=== PATIENT | female | born 1955 | race Caucasian/White ===

== ENCOUNTER 2021-07-15 06:05 | Emergency (ER) | payer OTHER, MEDICAID ==
[~2021-07-15] VITALS: Ht 152.4 cm; Wt 45.4 kg
[~2021-07-15 06:05] MED LIST: ALBU18; HYDR25TA4; LEVO50TA7; ZOSTINJ
[2021-07-15 07:02] LABS: Basophils # (auto) 0 10 ^3/uL (0-0.2); Basophils % (auto) 0.3 % (0.0-2.0); Eosinophils # (auto) 0 10 ^3/uL (0-0.8); Eosinophils % (auto) 0.1 % (0.0-7.0); Hematocrit 36.1 % (36.0-46.0); Hemoglobin 12.6 g/dL (12.2-16.2); Lymphocytes % (auto) 12.3 % (10.0-50.0); Mean Corpuscular Hemoglobin 36.8 pg (28.0-32.0); Mean Corpuscular Volume 105.1 fL (80.0-100.0); Monocytes # (auto) 1.1 10 ^3/uL (0-1.3); Monocytes % (auto) 13.9 % (0.0-12.0); Neutrophils # (auto) 5.9 10 ^3/uL (1.6-8.6); Neutrophils % (auto) 73.4 % (37.0-80.0); Red Blood Cells 3.44 10^6/uL (4.0-5.20); Red Cell Distribution Width 16.4 % (11.8-14.3); White Blood Cell 8.1 10^3/uL (4.4-10.8)
[2021-07-15 07:10] LABS: INR 1.05 (0.9-1.15); Partial Thromboplastin Time 25.6 sec (23.6-33.0)
[2021-07-15 07:11] LABS: Albumin 4.1 g/dL (3.4-5.0); Calcium 9.1 mg/dL (8.5-10.1); Magnesium 2.8 mg/dL (1.6-2.6); Potassium 3.1 mmol/L (3.5-5.1)
[2021-07-15 07:18] LABS: BUN/Creatinine Ratio 23.4; Bilirubin, Total 0.7 mg/dL (0.2-1.0)
[2021-07-15] MEDS ORDERED: MORPHINE SULFATE INJECTION 2 MG/ML SYRG IV ONE ×2 (08:15→11:45)
[2021-07-15] MEDS ORDERED: ONDANSETRON HCL 4 MG/2 ML VIAL IV ONE (08:15)
[2021-07-15] MEDS ORDERED: IOHEXOL 300 MG/ML 100ML BOTTLE IJ ONE (09:02)
[2021-07-15 10:07] LABS: Urine Bacteria NONE SEEN /hpf (None Seen); Urine Blood 1+ /uL (Negative); Urine Specific Gravity 1.043 (1.001-1.035); Urine WBC 5 /hpf (0 - 5)
[2021-07-15] MEDS ORDERED: POTASSIUM EFFERVESENT TAB 25 MEQ PO ONE (11:45)
[2021-07-15] MEDS ORDERED: FLEET MINERAL OIL ENEMA 133 ML PR ONE (11:45)
[2021-07-15] MEDS ORDERED: PROCHLORPERAZINE EDISYLATE 5 MG/ML 2ML VIAL IV ONE (11:45)
[2021-07-15 13:15] VITALS: BP 121/53
== END 2021-07-15 16:51 | disposition home or self-care (01) ==
LOC: ER 06:05 → EDBD 06:05 → EDSEX 06:05 → ER 16:51
DX: N39.0 Urinary tract infection, site not specified (principal); E87.6 Hypokalemia; K56.41 Fecal impaction; C50.919 Malignant neoplasm of unspecified site of unspecified female breast; C79.51 Secondary malignant neoplasm of bone; E11.9 Type 2 diabetes mellitus without complications; E78.5 Hyperlipidemia, unspecified; I10 Essential (primary) hypertension; R11.2 Nausea with vomiting, unspecified
CPT/HCPCS: 36415; 71045; 74177; 80053; 81001; 83735; 83880; 84443; 84484; 85025; 85610; 85730; 93005; 96374; 96375; 96376; 99285; J0780; J2270; J2405; Q9967

== ENCOUNTER 2022-04-26 21:03 | Inpatient (IN) | payer OTHER, MEDICAID ==
[~2022-04-26] VITALS: Ht 152.4 cm; Wt 51.2 kg
[2022-04-26 22:35] LABS: Basophils # (auto) 0 10 ^3/uL (0-0.2); Eosinophils # (auto) 0 10 ^3/uL (0-0.8); Mean Corpuscular Volume 108.3 fL (80.0-100.0); Monocytes # (auto) 0.3 10 ^3/uL (0-1.3); White Blood Cell 7.7 10^3/uL (4.4-10.8)
[2022-04-26 22:37] LABS: Basophils % (auto) 0.5 % (0.0-2.0); Eosinophils % (auto) 0.1 % (0.0-7.0); Hematocrit 40.1 % (36.0-46.0); Lymphocytes # (auto) 0.9 10 ^3/uL (0.4-5.4); Lymphocytes % (auto) 11.4 % (10.0-50.0); Mean Corpuscular Hemoglobin 37.9 pg (28.0-32.0); Monocytes % (auto) 3.9 % (0.0-12.0); Neutrophils # (auto) 6.5 10 ^3/uL (1.6-8.6); Neutrophils % (auto) 84.1 % (37.0-80.0); Red Cell Distribution Width 14.2 % (11.8-14.3)
[2022-04-26 22:51] LABS: Albumin 4.7 g/dL (3.4-5.0); Calcium 9.4 mg/dL (8.5-10.1); Magnesium 1.9 mg/dL (1.6-2.6)
[2022-04-26 22:55] LABS: BUN/Creatinine Ratio 21.9; Bilirubin, Total 1.4 mg/dL (0.2-1.0); Total Protein 7.8 g/dL (6.4-8.2)
[2022-04-26 22:57] LABS: Potassium 2.9 mmol/L (3.5-5.1)
[2022-04-26] MEDS ORDERED: fentaNYL CITRATE 100 MCG/2 ML VL IV ONE (23:00)
[2022-04-26] MEDS ORDERED: ONDANSETRON HCL 4 MG/2 ML VIAL IV ONE (23:00)
[2022-04-26] MEDS ORDERED: SODIUM CHLORIDE 0.9% 1,000 ML IV ONE (23:00)
[2022-04-26] MEDS ORDERED: ASPirin 325 MG TAB PO ONE (23:00)
[2022-04-27 01:41] LABS: Urine Bacteria FEW /hpf (None Seen); Urine Blood 1+ /uL (Negative); Urine Specific Gravity 1.012 (1.001-1.035); Urine WBC 24 /hpf (0 - 5)
[2022-04-27] MEDS ORDERED: HYDROcodone-ACET 5/325MG TAB PO PRN (02:00)
[2022-04-27] MEDS ORDERED: ACETAMINOPHEN 325 MG TAB PO PRN (02:00)
[2022-04-27] MEDS ORDERED: DOCUSATE SOD 100 MG CAP PO PRN (02:00)
[2022-04-27] MEDS ORDERED: MORPHINE SULFATE INJ 2 MG/ml SYRG IV PRN ×2 (02:00→02:45)
[2022-04-27] MEDS ORDERED: cefTRIAXone 1GM/50ML D5W 50 ML IV ONE (02:00)
[2022-04-27] MEDS: SODIUM CHLORIDE 0.9% 1,000 ML IV SCH ×2 (02:23→23:26)
[2022-04-27] MEDS: POTASSIUM CHL 20MEQ/100ML 100 ML IV SCH ×2 (02:39→04:49)
[2022-04-27] MEDS ORDERED: NITROGLYCERIN 0.4 MG SL TAB SL PRN (02:45)
[2022-04-27] MEDS: MORPHINE SULFATE INJ 2 MG/ml SYRG IV PRN ×2 (03:16→18:40)
[2022-04-27] MEDS: ONDANSETRON HCL 4 MG/2 ML VIAL IV PRN ×3 (03:16→21:14)
[2022-04-27 06:53] LABS: Basophils # (auto) 0 10 ^3/uL (0-0.2); Eosinophils # (auto) 0 10 ^3/uL (0-0.8); Monocytes # (auto) 0.5 10 ^3/uL (0-1.3); Monocytes % (auto) 7.5 % (0.0-12.0); Red Blood Cells 3.41 10^6/uL (4.0-5.20)
[2022-04-27 06:57] LABS: Basophils % (auto) 0.4 % (0.0-2.0); Eosinophils % (auto) 0.1 % (0.0-7.0); Hemoglobin 12.9 g/dL (12.2-16.2); Lymphocytes # (auto) 0.9 10 ^3/uL (0.4-5.4); Lymphocytes % (auto) 13.2 % (10.0-50.0); Mean Corpuscular Hemoglobin 37.7 pg (28.0-32.0); Mean Corpuscular Hgb Conc. 34.8 g/dL (32.0-36.0); Mean Corpuscular Volume 108.4 fL (80.0-100.0); Neutrophils # (auto) 5.5 10 ^3/uL (1.6-8.6); Neutrophils % (auto) 78.8 % (37.0-80.0); Red Cell Distribution Width 13.6 % (11.8-14.3)
[2022-04-27 06:59] LABS: Potassium 3.4 mmol/L (3.5-5.1)
[2022-04-27 07:11] LABS: Albumin 3.9 g/dL (3.4-5.0); Calcium 8.3 mg/dL (8.5-10.1); Total Protein 6.5 g/dL (6.4-8.2)
[2022-04-27] MEDS: LEVOTHYROXINE SODIUM 50 MCG TAB PO SCH (08:13)
[2022-04-27] MEDS: ENOXAPARIN SOD 40 MG/0.4 ML SYRINGE SC SCH (09:58)
[2022-04-27] MEDS: ASPirin 81 mg TAB PO SCH (09:58)
[2022-04-27 21:30] VITALS: BP 153/98
[2022-04-27] MEDS ORDERED: ATOR20TA50 PO (22:15)
[2022-04-27] MEDS ORDERED: LETR2.5T6 PO (22:15)
[2022-04-27] MEDS: hydrALAZINE HCL 20 MG/ML VL IV PRN (23:32)
[2022-04-28] VITALS (7 sets, daily range): BP systolic 117–158; BP diastolic 64–95
[2022-04-28] MEDS ORDERED: LORazepam 2MG/ML-1ML VIAL IV PRN (00:45)
[2022-04-28] MEDS: METOCLOPRAMIDE HCL 5MG/ml INJ 2ml VIAL IV PRN (00:56)
[2022-04-28] MEDS: LEVOTHYROXINE SODIUM 50 MCG TAB PO SCH (06:12)
[2022-04-28 06:36] LABS: Basophils # (auto) 0 10 ^3/uL (0-0.2); Basophils % (auto) 0.6 % (0.0-2.0); Eosinophils # (auto) 0 10 ^3/uL (0-0.8); Eosinophils % (auto) 0.3 % (0.0-7.0); Hematocrit 36.8 % (36.0-46.0); Hemoglobin 12.8 g/dL (12.2-16.2); Lymphocytes # (auto) 1.1 10 ^3/uL (0.4-5.4); Lymphocytes % (auto) 21.8 % (10.0-50.0); Mean Corpuscular Hemoglobin 38.2 pg (28.0-32.0); Mean Corpuscular Hgb Conc. 34.9 g/dL (32.0-36.0); Mean Corpuscular Volume 109.5 fL (80.0-100.0); Monocytes # (auto) 0.5 10 ^3/uL (0-1.3); Monocytes % (auto) 10.6 % (0.0-12.0); Neutrophils # (auto) 3.4 10 ^3/uL (1.6-8.6); Neutrophils % (auto) 66.7 % (37.0-80.0); Nucleated Red Blood Cells % 0.1 %; Red Blood Cells 3.36 10^6/uL (4.0-5.20); Red Cell Distribution Width 13.8 % (11.8-14.3); White Blood Cell 5.2 10^3/uL (4.4-10.8)
[2022-04-28 06:53] LABS: Albumin 3.4 g/dL (3.4-5.0); Calcium 8.2 mg/dL (8.5-10.1)
[2022-04-28 06:56] LABS: BUN/Creatinine Ratio 25.6; Bilirubin, Total 1.1 mg/dL (0.2-1.0); Total Protein 6.1 g/dL (6.4-8.2)
[2022-04-28 07:01] LABS: Potassium 2.7 mmol/L (3.5-5.1)
[2022-04-28] MEDS ORDERED: POTASSIUM CHL 20 Meq TABLET PO ONE (07:15)
[2022-04-28] MEDS: ASPirin 81 mg TAB PO SCH (08:54)
[2022-04-28] MEDS: cefTRIAXone 1GM/50ML D5W 50 ML IV SCH (08:54)
[2022-04-28] MEDS: POTASSIUM CHL 20MEQ/100ML 100 ML IV SCH ×3 (08:55→14:55)
[2022-04-28] MEDS: ENOXAPARIN SOD 40 MG/0.4 ML SYRINGE SC SCH (08:55)
[2022-04-28] MEDS: hydrALAZINE HCL 20 MG/ML VL IV PRN (10:02)
[2022-04-28] MEDS: SODIUM CHLORIDE 0.9% 1,000 ML IV SCH (12:18)
[2022-04-28] MEDS ORDERED: DOCU100C10 PO (12:30)
[2022-04-28] MEDS: MORPHINE SULFATE INJ 2 MG/ml SYRG IV PRN (20:51)
[2022-04-29] MEDS: SODIUM CHLORIDE 0.9% 1,000 ML IV SCH (04:40)
[2022-04-29 05:00] VITALS: BP_SYST 108; BP_SYST 120; BP_DIAS 65; BP_DIAS 72
[2022-04-29] MEDS: LEVOTHYROXINE SODIUM 50 MCG TAB PO SCH (06:32)
[2022-04-29 07:01] LABS: Eosinophils # (auto) 0 10 ^3/uL (0-0.8); Eosinophils % (auto) 0.7 % (0.0-7.0); Monocytes # (auto) 0.5 10 ^3/uL (0-1.3); Neutrophils # (auto) 1.5 10 ^3/uL (1.6-8.6); Red Cell Distribution Width 13.7 % (11.8-14.3); White Blood Cell 3.1 10^3/uL (4.4-10.8)
[2022-04-29 07:05] LABS: Basophils # (auto) 0.1 10 ^3/uL (0-0.2); Basophils % (auto) 2.3 % (0.0-2.0); Hematocrit 30.3 % (36.0-46.0); Hemoglobin 10.8 g/dL (12.2-16.2); Lymphocytes % (auto) 33.9 % (10.0-50.0); Mean Corpuscular Hemoglobin 38.7 pg (28.0-32.0); Mean Corpuscular Hgb Conc. 35.6 g/dL (32.0-36.0); Mean Corpuscular Volume 108.6 fL (80.0-100.0); Monocytes % (auto) 15.3 % (0.0-12.0); Neutrophils % (auto) 47.8 % (37.0-80.0); Nucleated Red Blood Cells % 0.2 %; Red Blood Cells 2.79 10^6/uL (4.0-5.20)
[2022-04-29 07:07] LABS: Calcium 7.5 mg/dL (8.5-10.1); Potassium 3.1 mmol/L (3.5-5.1)
[2022-04-29 07:11] LABS: BUN/Creatinine Ratio 19.4
[2022-04-29] MEDS: ENOXAPARIN SOD 40 MG/0.4 ML SYRINGE SC SCH (08:49)
[2022-04-29] MEDS: cefTRIAXone 1GM/50ML D5W 50 ML IV SCH (08:49)
[2022-04-29] MEDS: ASPirin 81 mg TAB PO SCH (08:49)
[2022-04-29 09:00] VITALS: BP 152/90
[2022-04-29] MEDS: hydrALAZINE HCL 20 MG/ML VL IV PRN (10:05)
[2022-04-29] MEDS ORDERED: POTASSIUM CHL 20 Meq TABLET PO ONE (12:15)
[2022-04-29] MEDS: POTASSIUM CHL 20MEQ/100ML 100 ML IV SCH ×2 (12:21→18:14)
[2022-04-29] MEDS: METOCLOPRAMIDE HCL 5MG/ml INJ 2ml VIAL IV PRN (12:34)
[2022-04-29 13:00] VITALS: BP 142/87
[2022-04-29 17:00] VITALS: BP 134/86
== END 2022-04-29 20:30 | disposition home or self-care (01) | DRG 640 ==
LOC: EDBD 21:03 → ER 21:13 → TELE 04-27 02:40 → TELE-CENTR 04-27 21:30
PROVIDERS: ADMIT Nurse Practitioner Family; ATTEND Internal Medicine
DX: E87.6 Hypokalemia (principal); J18.9 Pneumonia, unspecified organism; C79.51 Secondary malignant neoplasm of bone; N39.0 Urinary tract infection, site not specified; C50.919 Malignant neoplasm of unspecified site of unspecified female breast; E03.9 Hypothyroidism, unspecified; I10 Essential (primary) hypertension; R77.8 Other specified abnormalities of plasma proteins; R11.2 Nausea with vomiting, unspecified; R10.13 Epigastric pain; Z85.3 Personal history of malignant neoplasm of breast; Z90.49 Acquired absence of other specified parts of digestive tract
CPT/HCPCS: 36415; 70450; 71045; 71250; 72125; 74176; 80048; 80053; 81001; 82550; 83605; 83690; 83735; 84132; 84443; 84484; 85025; 87086; 93306; 96361; 96365; 96366; 96375; 96376; G0378; J0696; J2405; J3480

== ENCOUNTER 2022-10-22 20:55 | Emergency (ER) | payer OTHER, MEDICAID ==
[~2022-10-22] VITALS: Ht 157.5 cm; Wt 56.7 kg
[~2022-10-22 20:55] MED LIST changes: +ATOR20TA50 PO; +DOCU100C10 PO; +LETR2.5T6 PO; -ZOSTINJ
[2022-10-22] MEDS ORDERED: MORPHINE SULFATE 4 MG/ML SYR/VIAL IV ONE (21:45)
[2022-10-22] MEDS ORDERED: ONDANSETRON HCL 4 MG/2 ML VIAL IV ONE (21:45)
[2022-10-22] MEDS ORDERED: SODIUM CHLORIDE 0.9% 1,000 ML IV ONE (21:45)
[2022-10-22 22:32] LABS: Basophils # (auto) 0.1 10 ^3/uL (0-0.2); Basophils % (auto) 1.1 % (0.0-2.0); Eosinophils # (auto) 0 10 ^3/uL (0-0.8); Hematocrit 36.2 % (36.0-46.0); Hemoglobin 12.4 g/dL (12.2-16.2); Lymphocytes # (auto) 0.8 10 ^3/uL (0.4-5.4); Lymphocytes % (auto) 10.8 % (10.0-50.0); Mean Corpuscular Hemoglobin 38.9 pg (28.0-32.0); Mean Corpuscular Hgb Conc. 34.4 g/dL (32.0-36.0); Monocytes # (auto) 0.6 10 ^3/uL (0-1.3); Monocytes % (auto) 8.1 % (0.0-12.0); Neutrophils # (auto) 5.5 10 ^3/uL (1.6-8.6); Nucleated Red Blood Cells % 0.1 %; Red Cell Distribution Width 14.3 % (11.8-14.3); White Blood Cell 6.9 10^3/uL (4.4-10.8)
[2022-10-22 22:49] LABS: Alanine Aminotransferase 20 U/L (13-56); Anion Gap 11 (5-15); Aspartate Aminotransferase 25 U/L (15-37); BUN/Creatinine Ratio 24.4; Blood Urea Nitrogen 22 mg/dL (7-18); Calcium 8.8 mg/dL (8.5-10.1); Carbon Dioxide 24 mmol/L (21-32); Chloride 103 mmol/L (98-107); GFR African American 80 mL/min; GFR Non-African American 66 mL/min; Glucose 159 mg/dL (74-106); Lipase 51 U/L (73-393); Potassium 3.7 mmol/L (3.5-5.1); Sodium 138 mmol/L (136-145)
[2022-10-22 22:52] LABS: Alkaline Phosphatase 88 U/L (45-117); Bilirubin, Total 0.4 mg/dL (0.2-1.0); Total Protein 7.2 g/dL (6.4-8.2)
[2022-10-22 23:50] LABS: Urine Bacteria NONE SEEN /hpf (None Seen); Urine Blood Negative /uL (Negative); Urine Specific Gravity 1.014 (1.001-1.035); Urine WBC <1 /hpf (0 - 5)
[2022-10-23] MEDS ORDERED: METOCLOPRAMIDE HCL 5MG/ml INJ 2ml VIAL IV ONE (00:15)
[2022-10-23] MEDS ORDERED: diphenhdrAMINE HCL 50 MG/1 ML VL IV ONE (00:15)
[2022-10-23] MEDS ORDERED: LACTULOSE 20Gm/30ML SOLN PO ONE (00:30)
[2022-10-23] MEDS ORDERED: MAGNESIUM CITRATE SOLUTION 300 ML BTL PO ONE (00:30)
[2022-10-23 03:30] VITALS: BP 158/91
[2022-10-23] MEDS ORDERED: ONDANSETRON HCL 4 MG/2 ML VIAL IV ONE (04:30)
== END 2022-10-23 05:10 | disposition home or self-care (01) ==
LOC: ER 20:55 → EDBD 20:55 → ER 10-23 05:10
DX: R10.13 Epigastric pain (principal); R11.2 Nausea with vomiting, unspecified; K59.00 Constipation, unspecified; E86.0 Dehydration; Z90.49 Acquired absence of other specified parts of digestive tract; Z79.899 Other long term (current) drug therapy
CPT/HCPCS: 36415; 71045; 74176; 80053; 80320; 81001; 83690; 84484; 85025; 93005; 96361; 96374; 96375; 96376; 99285; J1200; J2270; J2405; J2765; J7030

== ENCOUNTER 2023-05-02 20:50 | Inpatient (IN) | payer OTHER, MEDICAID ==
[~2023-05-02] VITALS: Ht 162.6 cm; Wt 52.0 kg
[~2023-05-02 20:50] MED LIST changes: +DOCU-265 PO; -DOCU100C10 PO
[2023-05-02] MEDS ORDERED: SODIUM CHLORIDE 0.9% 1,000 ML IV ONE (21:15)
[2023-05-02] MEDS ORDERED: ONDANSETRON HCL 4 MG/2 ML VIAL IM ONE (21:15)
[2023-05-02] MEDS ORDERED: HYDROmorphone HCL 2 MG/ML VL/or syr IM ONE (21:15)
[2023-05-02 21:47] VITALS: PULSE 110; RESP 15; O2SAT 97
[2023-05-02 21:47] LABS: Basophils # (auto) 0 10 ^3/uL (0-0.2); Basophils % (auto) 0.4 % (0.0-2.0); Eosinophils # (auto) 0 10 ^3/uL (0-0.8); Eosinophils % (auto) 0.1 % (0.0-7.0); Hematocrit 36.9 % (36.0-46.0); Hemoglobin 12.8 g/dL (12.2-16.2); Lymphocytes # (auto) 0.8 10 ^3/uL (0.4-5.4); Mean Corpuscular Hemoglobin 37.6 pg (28.0-32.0); Mean Corpuscular Hgb Conc. 34.6 g/dL (32.0-36.0); Mean Corpuscular Volume 108.8 fL (80.0-100.0); Monocytes # (auto) 0.6 10 ^3/uL (0-1.3); Monocytes % (auto) 11.8 % (0.0-12.0); Neutrophils # (auto) 3.9 10 ^3/uL (1.6-8.6); Neutrophils % (auto) 72.7 % (37.0-80.0); Nucleated Red Blood Cells % 0.2 %; Red Blood Cells 3.39 10^6/uL (4.0-5.20); Red Cell Distribution Width 14.8 % (11.8-14.3); White Blood Cell 5.4 10^3/uL (4.4-10.8)
[2023-05-02 22:05] LABS: Alanine Aminotransferase 24 U/L (7-40); Albumin 4.9 g/dL (3.2-4.8); Alkaline Phosphatase 102 U/L (46-116); Anion Gap 5 (5-15); Aspartate Aminotransferase 28 U/L (13-40); BUN/Creatinine Ratio 17.9 (10.0-20.0); Bilirubin, Total 1.4 mg/dL (0.2-1.0); Blood Urea Nitrogen 17 mg/dL (9-23); Calcium 8.7 mg/dL (8.7-10.4); Carbon Dioxide 30 mmol/L (20-30); Chloride 97 mmol/L (98-107); Glucose 128 mg/dL (74-106); Lipase 36 U/L (12-53); Magnesium 1.7 mg/dL (1.6-2.6); Sodium 132 mmol/L (136-145); Total Protein 6.8 g/dL (5.7-8.2)
[2023-05-02 22:30] LABS: CRP High Sensitivity 0.51 mg/dL (<1.0)
[2023-05-03] MEDS ORDERED: SODIUM CHLORIDE 0.9% 1,000 ML IV ONE (00:15)
[2023-05-03] MEDS ORDERED: POTASSIUM EFFERVESENT TAB 25 MEQ PO ONE (00:15)
[2023-05-03] MEDS: POTASSIUM CHL 20MEQ/100ML 100 ML IV SCH ×2 (00:48→03:02)
[2023-05-03] MEDS ORDERED: HYDROcodone-ACET 5/325MG TAB PO PRN (01:30)
[2023-05-03] MEDS ORDERED: ACETAMINOPHEN 325 MG TAB PO PRN (01:30)
[2023-05-03] MEDS ORDERED: hydrALAZINE HCL 20 MG/ML VL IV PRN (01:30)
[2023-05-03] MEDS: SODIUM CHLORIDE 0.9% 1,000 ML IV SCH ×3 (03:01→20:22)
[2023-05-03] MEDS: ONDANSETRON HCL 4 MG/2 ML VIAL IV PRN ×2 (04:10→20:14)
[2023-05-03] MEDS: MORPHINE SULFATE INJ 2 MG/ml SYRG IV PRN ×4 (04:15→19:44)
[2023-05-03] MEDS ORDERED: DOCUSATE SOD 100 MG CAP PO ONE (04:30)
[2023-05-03 06:00] LABS: Basophils # (auto) 0 10 ^3/uL (0-0.2); Eosinophils # (auto) 0 10 ^3/uL (0-0.8); Eosinophils % (auto) 0.1 % (0.0-7.0); Lymphocytes # (auto) 0.7 10 ^3/uL (0.4-5.4); Mean Corpuscular Hemoglobin 38.2 pg (28.0-32.0); Nucleated Red Blood Cells % 0.1 %; White Blood Cell 5.9 10^3/uL (4.4-10.8)
[2023-05-03 06:04] LABS: Basophils % (auto) 0.3 % (0.0-2.0); Hematocrit 33.2 % (36.0-46.0); Hemoglobin 11.7 g/dL (12.2-16.2); Lymphocytes % (auto) 11.9 % (10.0-50.0); Mean Corpuscular Hgb Conc. 35.3 g/dL (32.0-36.0); Mean Corpuscular Volume 108.2 fL (80.0-100.0); Monocytes # (auto) 0.8 10 ^3/uL (0-1.3); Monocytes % (auto) 12.8 % (0.0-12.0); Neutrophils # (auto) 4.4 10 ^3/uL (1.6-8.6); Neutrophils % (auto) 74.9 % (37.0-80.0); Red Blood Cells 3.07 10^6/uL (4.0-5.20); Red Cell Distribution Width 14.7 % (11.8-14.3)
[2023-05-03] MEDS: LEVOTHYROXINE SODIUM 50 MCG TAB PO SCH ×2 (07:07→09:59)
[2023-05-03 07:33] LABS: Alanine Aminotransferase 25 U/L (7-40); Albumin 4.1 g/dL (3.2-4.8); Alkaline Phosphatase 83 U/L (46-116); Aspartate Aminotransferase 30 U/L (13-40); BUN/Creatinine Ratio 14.7 (10.0-20.0); Blood Urea Nitrogen 11 mg/dL (9-23); Glucose 124 mg/dL (74-106)
[2023-05-03 07:34] LABS: Bilirubin, Total 1.3 mg/dL (0.2-1.0); Total Protein 6.2 g/dL (5.7-8.2)
[2023-05-03 07:40] LABS: Chloride 102 mmol/L (98-107); Potassium 3.6 mmol/L (3.5-5.1); Sodium 133 mmol/L (136-145)
[2023-05-03 07:41] LABS: Anion Gap 8 (5-15); Carbon Dioxide 23 mmol/L (20-30)
[2023-05-03 09:20] VITALS: PULSE 72; RESP 14; O2SAT 96
[2023-05-03 09:43] VITALS: RESP 18; O2SAT 97
[2023-05-03] MEDS ORDERED: RIBO200T PO (10:02)
[2023-05-03 12:36] VITALS: BP 147/76; PULSE 83; RESP 16; TEMP 98.5; O2SAT 97
[2023-05-03 17:16] VITALS: BP 158/108; PULSE 83; RESP 20; TEMP 98.4; O2SAT 98
[2023-05-03] MEDS: LOSARTAN POTASSIUM 50 MG TAB PO SCH (17:18)
[2023-05-03 20:00] VITALS: PULSE 94; RESP 18; O2SAT 96
[2023-05-03 22:00] VITALS: BP 145/70; PULSE 115; RESP 18; TEMP 98.7; O2SAT 96
[2023-05-03] MEDS: DOCUSATE SOD 100 MG CAP PO PRN (22:37)
[2023-05-04 05:00] VITALS: BP 143/95; PULSE 94; RESP 16; TEMP 98.1; O2SAT 97
[2023-05-04 06:00] LABS: Basophils # (auto) 0 10 ^3/uL (0-0.2); Eosinophils # (auto) 0 10 ^3/uL (0-0.8); Monocytes # (auto) 0.6 10 ^3/uL (0-1.3)
[2023-05-04 06:02] LABS: Basophils % (auto) 1.3 % (0.0-2.0); Eosinophils % (auto) 0.6 % (0.0-7.0); Hematocrit 34.6 % (36.0-46.0); Hemoglobin 12.3 g/dL (12.2-16.2); Lymphocytes # (auto) 0.8 10 ^3/uL (0.4-5.4); Lymphocytes % (auto) 21.3 % (10.0-50.0); Mean Corpuscular Hgb Conc. 35.6 g/dL (32.0-36.0); Mean Corpuscular Volume 106.5 fL (80.0-100.0); Monocytes % (auto) 16.9 % (0.0-12.0); Neutrophils # (auto) 2.2 10 ^3/uL (1.6-8.6); Neutrophils % (auto) 59.9 % (37.0-80.0); Red Blood Cells 3.25 10^6/uL (4.0-5.20); Red Cell Distribution Width 14.8 % (11.8-14.3); White Blood Cell 3.8 10^3/uL (4.4-10.8)
[2023-05-04 06:21] LABS: Alanine Aminotransferase 21 U/L (7-40); Alkaline Phosphatase 88 U/L (46-116); Anion Gap 7 (5-15); Aspartate Aminotransferase 15 U/L (13-40); BUN/Creatinine Ratio 16.9 (10.0-20.0); Bilirubin, Total 1.2 mg/dL (0.2-1.0); Blood Urea Nitrogen 14 mg/dL (9-23); Calcium 8.6 mg/dL (8.7-10.4); Carbon Dioxide 30 mmol/L (20-30); Chloride 95 mmol/L (98-107); Glucose 102 mg/dL (74-106); Sodium 132 mmol/L (136-145)
[2023-05-04 06:25] LABS: Potassium 2.5 mmol/L (3.5-5.1)
[2023-05-04] MEDS ORDERED: POTASSIUM CHL 20MEQ/100ML 100 ML IV ONE (06:30)
[2023-05-04] MEDS: LEVOTHYROXINE SODIUM 50 MCG TAB PO SCH (07:25)
[2023-05-04] MEDS: DOCUSATE SOD 100 MG CAP PO PRN (07:26)
[2023-05-04 08:00] VITALS: BP_SYST 152; BP_DIAS 79; BP_DIAS 93; PULSE 110; PULSE 90; PULSE 94; RESP 14; RESP 16; RESP 18; TEMP 98.6; TEMP 99.1; O2SAT 96; O2SAT 97
[2023-05-04] MEDS: LOSARTAN POTASSIUM 50 MG TAB PO SCH (09:59)
[2023-05-04] MEDS: SODIUM CHLORIDE 0.9% 1,000 ML IV SCH (10:50)
[2023-05-04 12:00] VITALS: BP_SYST 130; BP_SYST 144; BP_DIAS 68; BP_DIAS 80; PULSE 105; PULSE 98; RESP 17; RESP 18; TEMP 98.5; TEMP 99.1; O2SAT 92; O2SAT 95
[2023-05-04] MEDS ORDERED: POTASSIUM EFFERVESENT TAB 25 MEQ GT ONE (18:15)
[2023-05-04 20:00] VITALS: PULSE 81; RESP 16; O2SAT 98
[2023-05-04 22:00] VITALS: BP 128/60; PULSE 81; RESP 16; TEMP 98.8; O2SAT 98
[2023-05-04] MEDS ORDERED: MELATONIN 5 MG TAB PO ONE (23:00)
[2023-05-05] VITALS (7 sets, daily range): BP systolic 121–169; BP diastolic 76–105; PULSE 81–94; RESP 16–20; TEMP 98.2–99.2; O2SAT 96–99
[2023-05-05] MEDS: ONDANSETRON HCL 4 MG/2 ML VIAL IV PRN ×3 (00:33→21:17)
[2023-05-05] MEDS: SODIUM CHLORIDE 0.9% 1,000 ML IV SCH ×2 (03:30→20:10)
[2023-05-05 05:23] LABS: Hemoglobin 12.3 g/dL (12.2-16.2)
[2023-05-05 05:25] LABS: Hematocrit 34.7 % (36.0-46.0); Mean Corpuscular Hemoglobin 38.3 pg (28.0-32.0); Mean Corpuscular Hgb Conc. 35.5 g/dL (32.0-36.0); Mean Corpuscular Volume 107.7 fL (80.0-100.0); Red Blood Cells 3.22 10^6/uL (4.0-5.20); Red Cell Distribution Width 14.9 % (11.8-14.3); White Blood Cell 4.2 10^3/uL (4.4-10.8)
[2023-05-05 05:26] LABS: Basophils % (manual) 0 (0.0-2.0); Blast Cells 0; Eosinophils % (manual) 0 (0-7); Metamyelocytes % 0; Myelocytes % 0; Promyelocytes % 0; Reactive Lymphocytes 0
[2023-05-05 05:39] LABS: Alanine Aminotransferase 19 U/L (7-40); Alkaline Phosphatase 87 U/L (46-116); Anion Gap 7 (5-15); Aspartate Aminotransferase 12 U/L (13-40); BUN/Creatinine Ratio 15.5 (10.0-20.0); Bilirubin, Total 1.2 mg/dL (0.2-1.0); Blood Urea Nitrogen 13 mg/dL (9-23); Calcium 8.7 mg/dL (8.7-10.4); Carbon Dioxide 29 mmol/L (20-30); Chloride 97 mmol/L (98-107); Glucose 105 mg/dL (74-106); Magnesium 1.9 mg/dL (1.6-2.6); Sodium 133 mmol/L (136-145); Total Protein 6.2 g/dL (5.7-8.2)
[2023-05-05 06:04] LABS: Band Neutrophils % (manual) 1; Lymphocytes % (manual) 29 (10.0-50.0); Monocytes % (manual) 12 (0-12); Platelet Estimate Adequate
[2023-05-05 06:12] LABS: Potassium 2.6 mmol/L (3.5-5.1)
[2023-05-05] MEDS: LEVOTHYROXINE SODIUM 50 MCG TAB PO SCH (06:34)
[2023-05-05] MEDS ORDERED: POTASSIUM CHL 20MEQ/100ML 100 ML IV ONE (07:15)
[2023-05-05] MEDS ORDERED: POTASSIUM CHL 20 Meq TABLET PO ONE (07:15)
[2023-05-05] MEDS: LOSARTAN POTASSIUM 50 MG TAB PO SCH (08:59)
[2023-05-05] MEDS: GABAPENTIN 300 MG CAP PO SCH ×2 (13:49→21:16)
[2023-05-06] MEDS: TEMAZEPAM 15 MG CAP PO PRN ×2 (01:24→23:06)
[2023-05-06] MEDS: MORPHINE SULFATE INJ 2 MG/ml SYRG IV PRN (01:32)
[2023-05-06 05:00] VITALS: BP 115/80; PULSE 86; RESP 18; TEMP 97.9; O2SAT 92
[2023-05-06 06:16] LABS: Basophils # (auto) 0.1 10 ^3/uL (0-0.2); Eosinophils # (auto) 0.1 10 ^3/uL (0-0.8); Hemoglobin 10.7 g/dL (12.2-16.2); Lymphocytes # (auto) 1.6 10 ^3/uL (0.4-5.4); Monocytes # (auto) 0.6 10 ^3/uL (0-1.3); Monocytes % (auto) 15.6 % (0.0-12.0); Neutrophils # (auto) 1.6 10 ^3/uL (1.6-8.6); Nucleated Red Blood Cells % 0.2 %; Red Blood Cells 2.78 10^6/uL (4.0-5.20); White Blood Cell 3.9 10^3/uL (4.4-10.8)
[2023-05-06 06:19] LABS: Basophils % (auto) 3.1 % (0.0-2.0); Eosinophils % (auto) 1.7 % (0.0-7.0); Hematocrit 29.5 % (36.0-46.0); Lymphocytes % (auto) 39.9 % (10.0-50.0); Mean Corpuscular Hemoglobin 38.7 pg (28.0-32.0); Mean Corpuscular Volume 106.1 fL (80.0-100.0); Neutrophils % (auto) 39.7 % (37.0-80.0); Red Cell Distribution Width 14.7 % (11.8-14.3)
[2023-05-06] MEDS: LEVOTHYROXINE SODIUM 50 MCG TAB PO SCH (06:27)
[2023-05-06] MEDS: GABAPENTIN 300 MG CAP PO SCH ×3 (06:27→23:07)
[2023-05-06 06:28] LABS: Anion Gap 6 (5-15); Carbon Dioxide 28 mmol/L (20-30); Chloride 104 mmol/L (98-107); Sodium 138 mmol/L (136-145)
[2023-05-06 06:34] LABS: BUN/Creatinine Ratio 13.1 (10.0-20.0); Blood Urea Nitrogen 11 mg/dL (9-23); Glucose 94 mg/dL (74-106); Magnesium 1.7 mg/dL (1.6-2.6)
[2023-05-06 07:07] LABS: Mean Corpuscular Hgb Conc. 36.5 g/dL (32.0-36.0)
[2023-05-06] MEDS ORDERED: POTASSIUM CHL 20 Meq TABLET PO ONE (07:15)
[2023-05-06] MEDS ORDERED: LIDOCAINE VISCOUS 2% 15ML UD ONE (08:50)
[2023-05-06] MEDS ORDERED: MIDAZOLAM HCL 5 MG/ML-1ML VIAL ONE (08:50)
[2023-05-06] MEDS ORDERED: diphenhdrAMINE HCL 50 MG/1 ML VL ONE (08:51)
[2023-05-06] MEDS ORDERED: fentaNYL CITRATE 100 MCG/2 ML VL ONE (08:51)
[2023-05-06] MEDS ORDERED: SODIUM CHLORIDE LOCK 10 ML ONE (08:51)
[2023-05-06 09:00] VITALS: BP 161/83; PULSE 73; RESP 17; TEMP 98; O2SAT 96
[2023-05-06] MEDS: LOSARTAN POTASSIUM 50 MG TAB PO SCH (10:00)
[2023-05-06] MEDS ORDERED: PANTOPRAZOLE 40 MG/10 ML VIAL INJ IV SCH ×2 (10:00→22:00)
[2023-05-06] MEDS ORDERED: ONDANSETRON HCL 4 MG/2 ML VIAL IV PRN (11:45)
[2023-05-06] MEDS ORDERED: MIDAZOLAM HCL 2MG/2ML 2ml VIAL (1mg/ml) ONE (11:46)
[2023-05-06] MEDS ORDERED: PROPOFOL 10 MG/ML 20 ML IV ONE (12:04)
[2023-05-06] MEDS ORDERED: LIDOCAINE 2% (LOCAL ANESTH.) PF 5ml SDV ONE (12:04)
[2023-05-06 12:12] VITALS: O2SAT 99
[2023-05-06] MEDS: SODIUM CHLORIDE 0.9% 1,000 ML IV SCH (13:04)
[2023-05-06] MEDS ORDERED: LORazepam 2MG/ML-1ML VIAL IV ONE (13:15)
[2023-05-06 14:25] LABS: Urine Bacteria NONE SEEN /hpf (None Seen); Urine Blood Negative /uL (Negative); Urine Clarity Clear (Clear); Urine Color Colorless (Yellow); Urine Mucus FEW (None Seen); Urine Protein, UAD Negative (Negative); Urine Specific Gravity 1.007 (1.001-1.035); Urine Urobilinogen Normal (Negative); Urine WBC <1 /hpf (0 - 5)
[2023-05-06 17:00] VITALS: BP 139/80; PULSE 82; RESP 17; TEMP 98.3; O2SAT 96
[2023-05-06] MEDS: SUCRALFATE 1 GM/10 ML ORAL SUSP PO SCH (17:00)
[2023-05-06] MEDS: NYSTATIN (MOUTH-THROAT) 500,000 UNITS/5 ML SUSP MT SCH ×2 (18:00→23:06)
[2023-05-06 20:00] VITALS: BP 143/86; PULSE 101; RESP 18; TEMP 98.4; O2SAT 97
[2023-05-06 22:00] VITALS: BP 143/86; PULSE 101; RESP 18; TEMP 98.4; O2SAT 97
[2023-05-06] MEDS: PANTOPRAZOLE 40 MG TAB PO SCH (23:07)
[2023-05-07 05:00] VITALS: BP 90/44; PULSE 74; RESP 18; TEMP 98; O2SAT 97
[2023-05-07 06:33] LABS: Basophils # (auto) 0.1 10 ^3/uL (0-0.2); Eosinophils # (auto) 0.1 10 ^3/uL (0-0.8); Hemoglobin 10.4 g/dL (12.2-16.2); Neutrophils # (auto) 2.1 10 ^3/uL (1.6-8.6); Nucleated Red Blood Cells % 0.1 %; White Blood Cell 5.1 10^3/uL (4.4-10.8)
[2023-05-07 06:37] LABS: Basophils % (auto) 2.6 % (0.0-2.0); Eosinophils % (auto) 2.3 % (0.0-7.0); Hematocrit 28.8 % (36.0-46.0); Mean Corpuscular Hemoglobin 38.5 pg (28.0-32.0); Mean Corpuscular Volume 107.1 fL (80.0-100.0); Monocytes # (auto) 0.8 10 ^3/uL (0-1.3); Monocytes % (auto) 14.8 % (0.0-12.0); Neutrophils % (auto) 41.3 % (37.0-80.0); Red Blood Cells 2.69 10^6/uL (4.0-5.20); Red Cell Distribution Width 14.9 % (11.8-14.3)
[2023-05-07 06:41] LABS: Chloride 108 mmol/L (98-107); Potassium 3.5 mmol/L (3.5-5.1); Sodium 142 mmol/L (136-145)
[2023-05-07 06:42] LABS: Anion Gap 6 (5-15); Calcium 8.3 mg/dL (8.5-10.1); Carbon Dioxide 28 mmol/L (20-30)
[2023-05-07 06:47] LABS: BUN/Creatinine Ratio 10.7 (10.0-20.0); Blood Urea Nitrogen 9 mg/dL (9-23); Glucose 95 mg/dL (74-106)
[2023-05-07] MEDS: SODIUM CHLORIDE 0.9% 1,000 ML IV SCH (06:50)
[2023-05-07] MEDS: GABAPENTIN 300 MG CAP PO SCH ×2 (06:50→14:14)
[2023-05-07] MEDS: SUCRALFATE 1 GM/10 ML ORAL SUSP PO SCH (06:51)
[2023-05-07] MEDS: NYSTATIN (MOUTH-THROAT) 500,000 UNITS/5 ML SUSP MT SCH ×2 (06:51→14:15)
[2023-05-07] MEDS: LEVOTHYROXINE SODIUM 50 MCG TAB PO SCH (06:51)
[2023-05-07 09:00] VITALS: BP 132/80; PULSE 73; RESP 17; TEMP 98.4; O2SAT 94
[2023-05-07] MEDS: PANTOPRAZOLE 40 MG TAB PO SCH (10:33)
[2023-05-07] MEDS: LOSARTAN POTASSIUM 50 MG TAB PO SCH (10:34)
[2023-05-07] MEDS ORDERED: PANT40TA2 PO (12:24)
[2023-05-07] MEDS ORDERED: NYS5LQ MT (12:24)
[2023-05-07] MEDS ORDERED: SUCR1SUS26 PO (12:24)
[2023-05-07 12:57] VITALS: BP 132/80; TEMP 36.7
[2023-05-07 12:59] VITALS: BP 122/70; PULSE 96; RESP 19; TEMP 98.4; O2SAT 98
== END 2023-05-07 16:20 | disposition home or self-care (01) | DRG 391 ==
LOC: EDBD 20:50 → ER 20:50 → OVERFLOW 05-03 02:51 → WEST WING 05-03 09:30
PROVIDERS: ADMIT Internal Medicine
PROC: 0DB68ZX Excision of Stomach, Via Natural or Artificial Opening Endoscopic, Diagnostic (ICD-10-PCS; 2023-05-06)
PROC: 0DB58ZX Excision of Esophagus, Via Natural or Artificial Opening Endoscopic, Diagnostic (ICD-10-PCS; 2023-05-06)
PROC: 0DB98ZX Excision of Duodenum, Via Natural or Artificial Opening Endoscopic, Diagnostic (ICD-10-PCS; principal; 2023-05-06 11:41)
DX: K29.90 Gastroduodenitis, unspecified, without bleeding (principal); N17.0 Acute kidney failure with tubular necrosis; E87.1 Hypo-osmolality and hyponatremia; K22.10 Ulcer of esophagus without bleeding; K44.9 Diaphragmatic hernia without obstruction or gangrene; E86.0 Dehydration; C50.919 Malignant neoplasm of unspecified site of unspecified female breast; E03.9 Hypothyroidism, unspecified; I10 Essential (primary) hypertension; K59.00 Constipation, unspecified; E87.6 Hypokalemia; F41.9 Anxiety disorder, unspecified; G47.00 Insomnia, unspecified; K25.9 Gastric ulcer, unspecified as acute or chronic, without hemorrhage or perforation; K29.70 Gastritis, unspecified, without bleeding; Z90.49 Acquired absence of other specified parts of digestive tract; Z80.3 Family history of malignant neoplasm of breast; Z82.0 Family history of epilepsy and other diseases of the nervous system
CPT/HCPCS: 36415; 74176; 74181; 80048; 80053; 81001; 82607; 82746; 83605; 83690; 83735; 84443; 84484; 85007; 85025; 85027; 86141; 93005; 96360; 96372; C9113; G0378; J2001; J2250; J2405; J2704; J3480

== ENCOUNTER 2023-09-08 10:03 | Emergency (ER) | payer OTHER, MEDICAID ==
[~2023-09-08] VITALS: Ht 152.4 cm; Wt 47.7 kg
[~2023-09-08 10:03] MED LIST changes: -ATOR20TA50 PO; +NYS5LQ MT; +PANT40TA2 PO; +RIBO200T PO; +SUCR1SUS26 PO
[2023-09-08] MEDS ORDERED: SODIUM CHLORIDE 0.9% 1,000 ML IV ONE (10:15)
[2023-09-08] MEDS ORDERED: SODIUM CHLORIDE 0.9% 500 ML IVB ONE (10:15)
[2023-09-08] MEDS ORDERED: KETOROLAC TROMETH 30 MG/ML 1ML VIAL IV ONE (10:15)
[2023-09-08] MEDS ORDERED: PROCHLORPERAZINE EDISYLATE 5 MG/ML 2ML VIAL IV ONE (10:15)
[2023-09-08 10:34] LABS: Basophils # (auto) 0 10 ^3/uL (0-0.2); Basophils % (auto) 0.6 % (0.0-2.0); Eosinophils # (auto) 0 10 ^3/uL (0-0.8); Eosinophils % (auto) 0.1 % (0.0-7.0); Neutrophils # (auto) 4.8 10 ^3/uL (1.6-8.6); Nucleated Red Blood Cells % 0.1 %; White Blood Cell 6.3 10^3/uL (4.4-10.8)
[2023-09-08 10:36] LABS: Hematocrit 42.5 % (36.0-46.0); Hemoglobin 14.6 g/dL (12.2-16.2); Lymphocytes % (auto) 15.2 % (10.0-50.0); Mean Corpuscular Hemoglobin 34.2 pg (28.0-32.0); Mean Corpuscular Hgb Conc. 34.4 g/dL (32.0-36.0); Mean Corpuscular Volume 99.4 fL (80.0-100.0); Monocytes # (auto) 0.6 10 ^3/uL (0-1.3); Monocytes % (auto) 8.9 % (0.0-12.0); Neutrophils % (auto) 75.2 % (37.0-80.0); Red Blood Cells 4.28 10^6/uL (4.0-5.20); Red Cell Distribution Width 14.3 % (11.8-14.3)
[2023-09-08 11:07] LABS: Alanine Aminotransferase 21 U/L (7-40); Albumin 4.9 g/dL (3.2-4.8); Alkaline Phosphatase 119 U/L (46-116); Anion Gap 5 (5-15); Aspartate Aminotransferase 19 U/L (13-40); Bilirubin, Total 1.2 mg/dL (0.2-1.0); Blood Urea Nitrogen 13 mg/dL (9-23); Calcium 9.4 mg/dL (8.5-10.1); Carbon Dioxide 30 mmol/L (20-30); Chloride 96 mmol/L (98-107); Glucose 143 mg/dL (74-106); Potassium 3.3 mmol/L (3.5-5.1); Sodium 131 mmol/L (136-145); Total Protein 7.3 g/dL (5.7-8.2)
[2023-09-08 11:52] LABS: Lipase 25 U/L (12-53); Magnesium 2.1 mg/dL (1.6-2.6)
[2023-09-08] MEDS ORDERED: POTASSIUM EFFERVESENT TAB 25 MEQ PO ONE (12:15)
[2023-09-08] MEDS ORDERED: PROC10TA6 PO (12:35)
[2023-09-08] MEDS ORDERED: TRAM50TA2 PO (12:35)
[2023-09-08 15:27] VITALS: BP 154/93; PULSE 95; RESP 16; TEMP 98.8; O2SAT 95
== END 2023-09-08 15:33 | disposition home or self-care (01) ==
LOC: ER 10:03 → EDBD 10:03 → ER 15:33
DX: C50.912 Malignant neoplasm of unspecified site of left female breast (principal); C79.51 Secondary malignant neoplasm of bone; E87.6 Hypokalemia; M25.551 Pain in right hip; I10 Essential (primary) hypertension; K21.9 Gastro-esophageal reflux disease without esophagitis; J44.9 Chronic obstructive pulmonary disease, unspecified; F15.90 Other stimulant use, unspecified, uncomplicated; Z98.890 Other specified postprocedural states; Z79.899 Other long term (current) drug therapy; W18.39XA Other fall on same level, initial encounter; Y93.89 Activity, other specified; Y92.098 Other place in other non-institutional residence as the place of occurrence of the external cause; Y99.8 Other external cause status
CPT/HCPCS: 36415; 71045; 73502; 80053; 83690; 83735; 84443; 85025; 93005; 96361; 96374; 96375; 99285; J0780; J1885; J7030

== ENCOUNTER 2024-06-29 00:36 | Inpatient (IN) | payer OTHER, MEDICAID ==
[~2024-06-29] VITALS: Ht 152.4 cm; Wt 47.9 kg
[~2024-06-29 00:36] MED LIST changes: +PROC10TA6 PO; +TRAM50TA2 PO
--- NOTE | 2024-06-29 01:04 | ED.PDOC ---
History of Present Illness HPI Comments 69 y/o F, with a Hx of breast CA, COPD, GERD, HTN, and hypothyroidism, is BIBA for c/o ALOC w/abnormal behavior, abdominal pain, nausea, vomiting, diarrhea, and fever, today. Per EMS report, patient's family called after patient began acting "not appropriate" towards her usual self in addition to developing remaining symptoms, yesterday, evening. Patient was found on scene with a blood glucose of 199, with all remaining vitals within normal limits, in addition to being slow to respond to questions but still follows commands. Upon arrival to ED, patient had a temperature of 99.5F. Patient has no reported known recent sick contact, travel, injuries, substance use/exposure, or spoiled food intake. Patient has no reported hematemesis, constipations, urinary symptoms, weakness, chills, or other associated symptoms or modifiers at this time. Time Seen by : 00:45 Primary Care Provider: MARSHALL Reviewed Notes: Nurses Notes, Commissary Manager Notes, Medications, Allergies Allergies: Coded Allergies: NO KNOWN ALLERGIES (Unverified , 09/08/23) Home Meds Active Scripts Tramadol Hcl (Tramadol Hcl) 50 Mg Tab, 50 MG PO BID for 5 Days, #10 TAB Prov:MELANIE BECERRIL MD 09/08/23 Prochlorperazine Maleate (Compazine) 10 Mg Tb, 1 TAB PO Q6HR for 10 Days, #40 TAB 3 Refills Prov:MELANIE BECERRIL MD 09/08/23 Nystatin (Mouth-Throat) (Mycostatin (Mouth-Throat)) 500,000 Units/5 Ml Ss, 5 ML MT QID for 5 Days, #100 ML Prov:LETI DE LEÓN MD 05/07/23 Sucralfate (CARAFATE SUSP) 1 Gm/10 Ml Ss, 1 GM PO BIDAC for 30 Days, #120 ML Prov:LETI DE LEÓN MD 05/07/23 Pantoprazole Sodium Sesquihydr (Protonix) 40 Mg Tab, 40 MG PO BID for 30 Days, #60 TAB Prov:LETI DE LEÓN MD 05/07/23 Docusate Sodium (Docusate Sodium) 100 Mg Cap, 100 MG PO BIDPRN PRN, #30 CAP Prov:DOUGLAS ALLENP 04/28/22 Reported Medications Ribociclib Succinate (Kisqali) 200 Mg Tab, 200 MG PO DAILY, TAB 05/03/23 Letrozole (LETROZOLE) 2.5 Mg Tab, 1 TAB PO DAILY 04/27/22 Levothyroxine Sodium (Levothyroxine Sodium) 50 Mcg Tab, #90 09/06/14 Hydrochlorothiazide (Hydrochlorothiazide) 25 Mg Tab, #30 09/06/14 Albuterol Sulfate (Ventolin Hfa) Aer, #18 09/06/14 Information Source: Patient, Emergency Med Personnel Mode of Arrival: EMS Severity: Moderate Timing: Hours Duration: Since onset Prehospital treatment: 12 Lead EKG, Accucheck (199), Case Manager Past Medical History PAST MEDICAL HISTORY: Cancer (breast), COPD, GERD, HTN, Thyroid (hypothyroidism ) Past Medical History (Other): NANDA Surgical History: Appendectomy, Hernia Repair Surgical History (Other): endometrial ablation and left breast lumpectomy PLATE MAKER History: Denies all PLATE MAKER Hx Family History Family History: Reviewed,noncontributory to illness, No family hx of Cancer, No family hx of DM, No family hx of Heart jd, No family hx of HTN, No family hx ofKidney jd, No family hx of Liver jd, No family hx of Lung jd, No family hx of Stroke Social History Smoker: Non-Smoker Alcohol: Denies ETOH Use Drugs: Marijuana Lives In: Home Constitutional: reports: fever; denies: chills, diaphoresis, fatigue, malaise, sweats, weakness, others EENTM: denies: blurred vision, double vision, ear bleeding, ear discharge, ear drainage, ear pain, ear ringing, eye pain, eye redness, hearing loss, mouth pain, mouth swelling, nasal discharge, nose bleeding, nose congestion, nose pain, photophobia, tearing, throat pain, throat swelling, voice changes, others Respiratory: denies: cough, hemoptysis, orthopnea, SOB at rest, shortness of b reath, SOB with excertion, stridor, wheezing, others Cardiovascular: denies: chest pain, dizzy spells, diaphoresis, Dyspnea on exertion, edema, irregular heart beat, left arm pain, lightheadedness, palpitations, PND, syncope, others Gastrointestinal: reports: abdominal pain, diarrhea, nausea, vomiting; denies: abdomen distended, blood streaked bowels, constipated, dysphagia, difficulty swallowing, hematemesis, melena, poor appetite, poor fluid intake, rectal bleeding, rectal pain, others Genitourinary: denies: abnormal vagina bleeding, burning, dyspareunia, dysuria, flank pain, frequency, hematuria, incontinence, pain, , vagina discharge, urgency, others Neurological: reports: others (ALOC w/abnormal behavior ); denies: dizziness, fainting, headache, left sided numbness, left sided weakness, numbness, paresthesia, pre-existing deficit, right sided numbness, right sided weakness, seizure, speech problems, tingling, tremors, weakness Musculoskeletal: denies: back pain, gout, joint pain, joint swelling, muscle pain, muscle stiffness, neck pain, others Integumetry: denies: bruises, change in color, change in hair/nails, dryness, laceration, lesions, lumps, rash, wounds, others Allergic/Immunocompromised: denies: Difficulty Healing, Frequent Infections, Hives, Itching, others Hematologic/Lymphatic: denies: anemia, blood clots, easy bleeding, easy bruising, swollen glands, others Endocrine: denies: excessive hunger, excessive sweating, excessive thirst, excessive urination, flushing, intolerance to cold, intolerance to heat, unexplained weight gain, unexplained weight loss, others Psychiatric: denies: anxiety, bipolar disorder, depression, hopeless, panic disorder, schizophrenia, sleepless, suicidal, others All Other Systems: Reviewed and Negative Physical Exam General Appearance: Moderate Distress, Thin HEENT: Normal ENT Inspection, Pharynx Normal, TMs Normal Neck: Full Range of Motion, Non-Tender, Normal, Normal Inspection Respiratory: Chest Non-Tender, Lungs Clear, No Accessory Muscle Use, No Respiratory Distress, Normal Breath Sounds Cardiovascular: No Edema, No JVD, No Murmur, No Gallop, Normal Peripheral Pulses, Regular Rate/Rhythm Breast Exam: Deferred Gastrointestinal: No Organomegaly, Non Tender, No Pulsatile Mass, Normal Bowel Sounds, Soft Genitalia: Deferred Pelvic: Deferred Rectal: Deferred Extremities: No pedal edema Musculoskeletal : Apperance: Normal Neurologic: Alert Cerebellar Function: NOT DONE Reflexes: NOT DONE Skin: Pallor Peripheral Pulses: 3+ Radial (R), 3+ Radial (L) Lymphatic: No Adenopathy Was a procedure done? Was a procedure done?: No EKG EKG : Pulse Rate (adult): 83 [place]: Normal Cardiac Rhythm: NSR Block: None Hypertrophy: None ST: Normal Differential Dx Considerations may include: viral syndrome, gastritis, gastroenteritis, spoiled food, UTI, electrolyte imbalance, dehydration X-Ray, Labs, Meds, VS Vital Signs Date Time Temp Pulse Resp B/P (MAP) Pulse Ox O2 Delivery O2 Flow Rate FiO2 06/29/24 01:04 83 06/29/24 00:54 83 Lab Test 06/29/24 01:09 Range/Units White Blood Count 8.3 4.4-10.8 10^3/uL Red Blood Count 3.33 L 4.0-5.20 10^6/uL Hemoglobin 12.5 12.2-16.2 g/dL Hematocrit 35.1 L 36.0-46.0 % Mean Corpuscular Volume 105.4 H 80.0-100.0 fL Mean Corpuscular Hemoglobin 37.6 H 28.0-32.0 pg Mean Corpuscular Hemoglobin Concent 35.7 32.0-36.0 g/dL Red Cell Distribution Width 14.0 11.8-14.3 % Platelet Count 489 H 140-450 10^3/uL Mean Platelet Volume 7.2 6.9-10.8 fL Neutrophils (%) (Auto) 76.7 37.0-80.0 % Lymphocytes (%) (Auto) 15.7 10.0-50.0 % Monocytes (%) (Auto) 5.1 0.0-12.0 % Eosinophils (%) (Auto) 0.3 0.0-7.0 % Basophils (%) (Auto) 2.2 H 0.0-2.0 % Neutrophils # (Auto) 6.4 1.6-8.6 10 ^3/uL Lymphocytes # (Auto) 1.3 0.4-5.4 10 ^3/uL Monocytes # (Auto) 0.4 0-1.3 10 ^3/uL Eosinophils # (Auto) 0 0-0.8 10 ^3/uL Basophils # (Auto) 0.2 0-0.2 10 ^3/uL Nucleated Red Blood Cells 0.0 % Sodium Level 140 136-145 mmol/L Potassium Level 2.5 *L 3.5-5.1 mmol/L Chloride Level 104 98-107 mmol/L Carbon Dioxide Level 25 20-31 mmol/L Anion Gap 11 5-15 Blood Urea Nitrogen 20 9-23 mg/dL Creatinine 1.14 H 0.550-1.02 mg/dL Glomerular Filtration Rate Calc 52 >90 mL/min BUN/Creatinine Ratio 17.5 10.0-20.0 Serum Glucose 231 H 74-106 mg/dL Calcium Level 9.6 8.7-10.4 mg/dL Patient alert. She does answer to name. History of breast cancer. Vitals stable. Reviewed her previous visit. She has become aggressive after coming to the ER. Establish intravenous access. Was given fluids. Was given morphine. Was given Zofran. Explained to the patient. Continue cardiac monitoring. EKG reviewed does not show any acute process. Time of 1ST Reevaluation: 01:15 Reevaluation 1ST: Unchanged Patient Education/Counseling: Diagnosis, Treatment Family Education/Counseling: No Family Present Departure 1 Departure Time of Disposition: 01:08 Impression: Primary Impression: Intractable abdominal pain Additional Impressions: Intractable nausea and vomiting Hypokalemia Disposition: ADMITTED INPATIENT Admit to: Med Surg Condition: Guarded Critical Care Note Critical Care Time?: No Stability Stability form required: No Heart Score Heart Score: Heart Score Response (Comments) Value History Slightly Suspicious 0 EKG Normal 0 Age >65 2 Risk Factors >3 or Hx ASHD 2 Troponin Normal limit 0 Total 4 I personally scribed for YOLIE JOHNSON MD ([email or web address]) on 06/29/24 at 01:04. Electronically submitted by Cristobal Rojas ([email or web address]). YOLIE JOHNSON MD Jun 29, 2024 01:04
[2024-06-29 01:18] LABS: Basophils # (auto) 0.2 10 ^3/uL (0-0.2); Eosinophils # (auto) 0 10 ^3/uL (0-0.8); Eosinophils % (auto) 0.3 % (0.0-7.0); Monocytes # (auto) 0.4 10 ^3/uL (0-1.3)
[2024-06-29 01:20] LABS: Basophils % (auto) 2.2 % (0.0-2.0); Hematocrit 35.1 % (36.0-46.0); Hemoglobin 12.5 g/dL (12.2-16.2); Lymphocytes # (auto) 1.3 10 ^3/uL (0.4-5.4); Lymphocytes % (auto) 15.7 % (10.0-50.0); Mean Corpuscular Hemoglobin 37.6 pg (28.0-32.0); Mean Corpuscular Hgb Conc. 35.7 g/dL (32.0-36.0); Mean Corpuscular Volume 105.4 fL (80.0-100.0); Monocytes % (auto) 5.1 % (0.0-12.0); Neutrophils # (auto) 6.4 10 ^3/uL (1.6-8.6); Neutrophils % (auto) 76.7 % (37.0-80.0); Platelet Count (auto) 489 10^3/uL (140-450); Red Blood Cells 3.33 10^6/uL (4.0-5.20); White Blood Cell 8.3 10^3/uL (4.4-10.8)
[2024-06-29 01:30] LABS: Chloride 104 mmol/L (98-107); Sodium 140 mmol/L (136-145)
[2024-06-29 01:31] LABS: Anion Gap 11 (5-15); Calcium 9.6 mg/dL (8.7-10.4); Carbon Dioxide 25 mmol/L (20-31)
[2024-06-29 01:36] LABS: BUN/Creatinine Ratio 17.5 (10.0-20.0); Blood Urea Nitrogen 20 mg/dL (9-23); Glucose 231 mg/dL (74-106)
[2024-06-29 01:39] LABS: Potassium 2.5 mmol/L (3.5-5.1)
[2024-06-29] MEDS: SODIUM CHLORIDE 0.9% 1,000 ML IV ONE ×2 (05:41→09:06)
[2024-06-29] MEDS: ONDANSETRON HCL 4 MG/2 ML VIAL IV ONE ×2 (05:41→08:27)
[2024-06-29] MEDS: MORPHINE SULFATE INJ 2 MG/ml SYRG IV ONE (05:42)
--- NOTE | 2024-06-29 06:35 | ECG ---
[facility] Test Date: 2024-06-29 Test Time: 00:54:03 Pat Name: SAWYER SALMERON Department: ED Room: 0215T Gender: F Sanitary Plumber: ARLENE : 1955 Requested By: YOLIE JOHNSON Order Number: [id number] Reading MD: Jarrett Wong Measurements Intervals [place] Rate: 83 P: 76 AK: 134 QRS: 70 QRSD: 108 T: -58 QT: 434 QTc: 510 Interpretive Statements Sinus rhythm Nonspecific T abnormalities, diffuse leads Prolonged QT interval Baseline wander in lead(s) V1,V2,V4,V5 Electronically Signed On 07-03-2024 17:05:10 PST by Jarrett Wong Please click the below link to view image of tracing.
[2024-06-29] MEDS: POTASSIUM CHL 20MEQ/100ML 100 ML IV SCH (06:50)
[2024-06-29 08:00] VITALS: PULSE 96; RESP 18; O2SAT 96
[2024-06-29] MEDS: ONDANSETRON HCL 4 MG/2 ML VIAL ONE (08:26)
[2024-06-29 08:46] LABS: Urine Bacteria None Seen /hpf (None Seen)
[2024-06-29 08:50] LABS: Urine Blood TRACE /uL (Negative); Urine Clarity Clear (Clear); Urine Protein, UAD TRACE (Negative); Urine Specific Gravity 1.012 (1.001-1.035); Urine Urobilinogen Normal (Negative); Urine WBC <1 /hpf (0 - 5); Urine pH 7.5 (5.0-9.0)
[2024-06-29 09:02] LABS: Urine Color STRAW (Yellow)
[2024-06-29] MEDS: METOCLOPRAMIDE HCL 5MG/ml INJ 2ml VIAL IV ONE (09:05)
[2024-06-29] MEDS: MORPHINE SULFATE 4 MG/ML SYR/VIAL IV ONE (09:06)
--- NOTE | 2024-06-29 15:25 | DVH ---
Exam: CT CT AB PEL WO CON-NO ORAL OR IV History: abdominal pain Comparison Study: CT CT AB PEL WO CON-NO ORAL OR IV on DOS: 05/02/23, CT CT AB PEL WO CON-NO ORAL OR IV on DOS: 10/22/22, CT CHEST ABD PELVIS WO CONTRAS on DOS: 04/26/22 Technique: Multidetector spiral CT of the abdomen and pelvis was performed from lung bases to pubic symphysis. Imaging was performed without IV contrast. Axial, coronal and sagittal multiplanar reform ats were obtained from the axial data set by the technologist. Radiation dose : Abdomen/Pelvis: CTDIvol 5 mGy, DLP 264.03 mGy*cm. Findings: Evaluation of solid organs is limited due to lack of intravenous contrast use. Lung Bases: No acute or significant lung base finding. Normal heart size. No pleural or pericardial effusion. Liver: The liver is normal in size. No focal lesions. Gallbladder and biliary Tree: Unremarkable Spleen: Unremarkable Pancreas: The pancreas is grossly normal in appearance. Adrenal Glands: Mild nodularity of the bilateral adrenal glands. Kidneys: Kidneys are grossly normal without calculi or hydronephrosis. Bladder: Bladder is decompressed with a Hernandez catheter and cannot be adequately assessed. Bowel: The stomach is grossly normal in appearance. Small bowel and colon are normal in caliber and d istribution. Nonspecific gaseous distention of small bowel. The appendix is not visualized; however, no secondary findings of acute appendicitis identified. Ascites: Absent Lymphadenopathy: No mesenteric, retroperitoneal or periportal lymphadenopathy. Abdominal wall and Mesentery: Unremarkable. Vasculature: The visualized abdominal aorta is normal in size and caliber. Evaluation of abdominal a nd pelvic vessels is limited due to lack of intravenous contrast. Pelvic Organs: Unremarkable Musculoskeletal: Compression deformity of L1. IMPRESSION: 1. Limited noncontrast exam of the abdomen and pelvis. No acute intra-abdominal finding. Consider fu rther evaluation with CT of the abdomen and pelvis with contrast. Radiation optimization: All CT scans at this facility use at least one of these dose optimization gianni hniques: Automated exposure control mA and/or kV adjustment per patient size (includes targeted exams where dose is matched to clinical indication) or iterative reconstruction. HS:Y
[2024-06-29 15:45] LABS: Potassium 4.3 mmol/L (3.5-5.1)
[2024-06-29 15:52] LABS: Magnesium 1.9 mg/dL (1.6-2.6)
[2024-06-29] MEDS ORDERED: ACETAMINOPHEN 325 MG TAB PO PRN (16:00)
[2024-06-29] MEDS ORDERED: DOCUSATE SOD 100 MG CAP PO PRN (16:00)
[2024-06-29] MEDS ORDERED: MORPHINE SULFATE INJ 2 MG/ml SYRG IV PRN (16:00)
[2024-06-29] MEDS ORDERED: NITROGLYCERIN 0.4 MG SL TAB SL PRN (16:00)
--- NOTE | 2024-06-29 16:00 | DVHHP2 ---
History of Present Illness Reason for Visit: Abdominal Pain History of Present Illness Lula Viera is a 69-year-old female with past medical history of COPD, breast cancer, hypertension, Hypothyroidism, and GERD who comes in with intractable nausea and vomiting. Patient is currently being treated with PO medications for her breast cancer. She states she has been undergoing treatment for about 3 years and about once or twice a year she has this reaction. Patient has not been able to eat or drink anything for 3 days. States she has also been experiencing fevers, malaise, and body aches. Cardiovascular: HTN Pulmonary: COPD GI: GERD Endocrine: Hypothyroidism Past Surgical History: Appendectomy, Other (DNC) Family History: None Smoke: No ALCOHOL: none Drugs: None Lives: with Family Domestic Violence: Neg Review of Systems Constitutional: Yes: Fever, Weakness, Malaise; No: Chills, Sweats, Other Eyes: No: Pain, Vision change, Conjunctivae inflammation, Eyelid inflammation, Other, Redness ENT: No: Ear pain, Ear discharge, Nose pain, Nose discharge, Nose congestion, Mouth pain, Mouth swelling, Throat pain, Throat swelling, Other Respiratory: No: Cough, Dry, Shortness of breath, SOB with excertion, Wheezing, Hemoptysis, Pleuritic Pain, Sputum, Wheezing, Other Cardiovascular: No: Chest Pain, Palpitations, Orthopnea, Paroxysmal Noc. Dyspnea, Edema, Lt Headedness, Other Gastrointestinal: Nausea, Vomiting, Abdominal Pain; No: Diarrhea, Constipation, Melena, Hematochezia, Other Genitourinary: No Dysuria, No Frequency, No Incontinence, No Hematuria, No Retention, No Other Musculoskeletal: No: other, neck pain, shoulder pain, arm pain, back pain, hand pain, leg pain, foot pain Skin: No: Rash, Lesions, Jaundice, Bruising, Other Neurological: No: Weakness, Numbness, Incoordination, Change in speech, Confusion, Seizures, Other Allergies: Coded Allergies: NO KNOWN ALLERGIES (Unverified , 09/08/23) Exam Vital Signs Vital Signs Date Time Temp Pulse Resp B/P (MAP) Pulse Ox O2 Delivery O2 Flow Rate FiO2 06/29/24 13:00 102 14 147/73 (97) 96 06/29/24 08:00 Room Air* 0 21 06/29/24 05:30 98.0 98.0 General Appearance: Alert, Oriented X3, Cooperative, moderate distress HEENT: Atraumatic, PERRLA Respiratory: Clear to auscultation, Normal air movement Cardiovascular: Other (Tachycardia) Abdominal: Other (abdominal pain, N/V) Extremities: No clubbing, No cyanosis, No edema, Normal pulses Skin: No rashes, No breakdown Neuro: Other (weakness) Psych/Mental Status: Mental status NL Labs/Xrays Labs Test 06/29/24 15:09 06/29/24 08:13 06/29/24 01:09 Range/Units Potassium Level 4.3 3.5-5.1 mmol/L Magnesium Level 1.9 1.6-2.6 mg/dL Urine Color Straw Yellow Urine Clarity Clear Clear Urine pH 7.5 5.0-9.0 Urine Specific [place] 1.012 1.001-1.035 Urine Protein Trace H Negative Urine Ketones 1+ H Negative Urine Blood Trace H Negative /uL Urine Nitrite Negative Negative Urine Bilirubin Negative Negative Urine Urobilinogen Normal Negative mg/dL Urine Leukocyte Esterase Negative Negative /uL Urine RBC 2 0 - 4 /hpf Urine WBC <1 0 - 5 /hpf Urine Squamous Epithelial Cells None seen <5 /hpf Urine Bacteria None seen None Seen /hpf Urine Glucose 3+ H Normal mg/dL White Blood Count 8.3 4.4-10.8 10^3/uL Red Blood Count 3.33 L 4.0-5.20 10^6/uL Hemoglobin 12.5 12.2-16.2 g/dL Hematocrit 35.1 L 36.0-46.0 % Mean Corpuscular Volume 105.4 H 80.0-100.0 fL Mean Corpuscular Hemoglobin 37.6 H 28.0-32.0 pg Mean Corpuscular Hemoglobin Concent 35.7 32.0-36.0 g/dL Red Cell Distribution Width 14.0 11.8-14.3 % Platelet Count 489 H 140-450 10^3/uL Mean Platelet Volume 7.2 6.9-10.8 fL Neutrophils (%) (Auto) 76.7 37.0-80.0 % Lymphocytes (%) (Auto) 15.7 10.0-50.0 % Monocytes (%) (Auto) 5.1 0.0-12.0 % Eosinophils (%) (Auto) 0.3 0.0-7.0 % Basophils (%) (Auto) 2.2 H 0.0-2.0 % Neutrophils # (Auto) 6.4 1.6-8.6 10 ^3/uL Lymphocytes # (Auto) 1.3 0.4-5.4 10 ^3/uL Monocytes # (Auto) 0.4 0-1.3 10 ^3/uL Eosinophils # (Auto) 0 0-0.8 10 ^3/uL Basophils # (Auto) 0.2 0-0.2 10 ^3/uL Nucleated Red Blood Cells 0.0 % Sodium Level 140 136-145 mmol/L Chloride Level 104 98-107 mmol/L Carbon Dioxide Level 25 20-31 mmol/L Anion Gap 11 5-15 Blood Urea Nitrogen 20 9-23 mg/dL Creatinine 1.14 H 0.550-1.02 mg/dL Glomerular Filtration Rate Calc 52 >90 mL/min BUN/Creatinine Ratio 17.5 10.0-20.0 Serum Glucose 231 H 74-106 mg/dL Calcium Level 9.6 8.7-10.4 mg/dL Exam: CT CT AB PEL WO CON-NO ORAL OR IV Findings: Evaluation of solid organs is limited due to lack of intravenous contrast use. Lung Bases: No acute or significant lung base finding. Normal heart size. No pleural or pericardial effusion. Liver: The liver is normal in size. No focal lesions. Gallbladder and biliary Tree: Unremarkable Spleen: Unremarkable Pancreas: The pancreas is grossly normal in appearance. Adrenal Glands: Mild nodularity of the bilateral adrenal glands. Kidneys: Kidneys are grossly normal without calculi or hydronephrosis. Bladder: Bladder is decompressed with a Hernandez catheter and cannot be adequately assessed. Bowel: The stomach is grossly normal in appearance. Small bowel and colon are normal in caliber and distribution. Nonspecific gaseous distention of small bow el. The appendix is not visualized; however, no secondary findings of acute appendicitis identified. Ascites: Absent Lymphadenopathy: No mesenteric, retroperitoneal or periportal lymphadenopathy. Abdominal wall and Mesentery: Unremarkable. Vasculature: The visualized abdominal aorta is normal in size and caliber. Evaluation of abdominal and pelvic vessels is limited due to lack of intravenous contrast. Pelvic Organs: Unremarkable Musculoskeletal: Compression deformity of L1. IMPRESSION: 1. Limited noncontrast exam of the abdomen and pelvis. No acute intra-abdominal finding. Consider further evaluation with CT of the abdomen and pelvis with contrast. Assessment/Plan Assessment/Plan Assessment: Intractable nausea and vomiting, Hypokalemia, Dehydration, Breast cancer, Hypothyroidism, Hypertension, Plan: Admit to Med-Surg, Manage/Monitor electrolytes, IV hydration, Pain management, Home medications reconciled, Plan discussed with: Patient My Orders Orders - DEBBIE GUZMAN Procedure Category Date Status Time Ct Ab Pel Wo Con-No CT 06/29/24 Resulted Oral Or Iv 14:17 Date of Service: Jun 29, 2024 Billing Provider: DEBBIE GUZMAN Common Visit Codes: [id number] INP/OBS CARE (MOD) DEBBIE GUZMAN Jun 29, 2024 16:00
[2024-06-29] MEDS: SODIUM CHLORIDE 0.9% 1,000 ML IV SCH (16:05)
[2024-06-29] MEDS: ONDANSETRON HCL 4 MG/2 ML VIAL IV PRN (16:43)
[2024-06-29] MEDS: MORPHINE SULFATE INJ 2 MG/ml SYRG IV PRN (16:44)
[2024-06-29] MEDS ORDERED: DEXTROSE (50%) 50ML SYRG IV PRN (16:45)
[2024-06-29] MEDS: ACCU-CHEK COMFORT CURVE STRIP VI SCH (17:18)
[2024-06-29] MEDS: MAGNESIUM SULFATE 1GM/100ML 100 ML IV SCH (17:21)
[2024-06-29] MEDS: InsuLIN REG 1unit/0.01ml Soln (100units/ml) SC SCH ×2 (17:33→22:00)
[2024-06-29 19:13] VITALS: BP 159/86; PULSE 124; RESP 20; TEMP 99.8; O2SAT 94
[2024-06-29] MEDS ORDERED: ONDA-155 PO (20:10)
[2024-06-29 20:11] VITALS: PULSE 124; RESP 18; O2SAT 96
[2024-06-29] MEDS: METOCLOPRAMIDE HCL 5MG/ml INJ 2ml VIAL IV PRN (20:32)
[2024-06-29 21:00] VITALS: BP 156/82; PULSE 115; RESP 20; TEMP 99.3; O2SAT 96
[2024-06-30] VITALS (8 sets, daily range): BP systolic 103–163; BP diastolic 68–95; PULSE 52–135; RESP 18–20; TEMP 98.2–99.8; O2SAT 92–97
[2024-06-30] MEDS: LEVOTHYROXINE SODIUM 50 MCG TAB PO SCH (05:36)
[2024-06-30 06:06] LABS: Basophils # (auto) 0 10 ^3/uL (0-0.2); Basophils % (auto) 0.2 % (0.0-2.0); Eosinophils # (auto) 0 10 ^3/uL (0-0.8); Hemoglobin 12.7 g/dL (12.2-16.2); Neutrophils # (auto) 9.2 10 ^3/uL (1.6-8.6)
[2024-06-30 06:09] LABS: Hematocrit 35.2 % (36.0-46.0); Lymphocytes # (auto) 0.7 10 ^3/uL (0.4-5.4); Lymphocytes % (auto) 6.6 % (10.0-50.0); Mean Corpuscular Hgb Conc. 36.1 g/dL (32.0-36.0); Mean Corpuscular Volume 105.1 fL (80.0-100.0); Monocytes # (auto) 0.7 10 ^3/uL (0-1.3); Monocytes % (auto) 6.8 % (0.0-12.0); Neutrophils % (auto) 86.4 % (37.0-80.0); Platelet Count (auto) 432 10^3/uL (140-450); Red Blood Cells 3.35 10^6/uL (4.0-5.20); Red Cell Distribution Width 14.1 % (11.8-14.3); White Blood Cell 10.6 10^3/uL (4.4-10.8)
[2024-06-30 06:32] LABS: Albumin 5.1 g/dL (3.2-4.8); Anion Gap 10 (5-15); Bilirubin, Total 0.9 mg/dL (0.2-1.0); Calcium 9.8 mg/dL (8.7-10.4); Carbon Dioxide 23 mmol/L (20-31); Chloride 104 mmol/L (98-107); Glucose 124 mg/dL (74-106); Potassium 3.2 mmol/L (3.5-5.1); Sodium 137 mmol/L (136-145)
[2024-06-30 06:40] LABS: Alanine Aminotransferase 25 U/L (7-40); Alkaline Phosphatase 103 U/L (46-116); Aspartate Aminotransferase 27 U/L (13-40); BUN/Creatinine Ratio 18.7 (10.0-20.0); Blood Urea Nitrogen 17 mg/dL (9-23); Total Protein 7.2 g/dL (5.7-8.2)
[2024-06-30] MEDS: RIBOCICLIB SUCCINATE PO SCH (10:00)
--- NOTE | 2024-06-30 13:07 | DVHPN2 ---
Subjective 06/30 - this is likely from her [place] medication kisqali course. she does get these symptoms close to end of her 3rd week of each cycle. this episode is quite severe , resulting in po intolerance for last few days. will holld off the kisqali as it is supposed to stop tomorrow weg 07/01 anyway. will start aston antiemetics. maintenance ivf. keep on tele given we have multiple QT prolonging antiemetics meds onboard. Reviewed: H&P Changes from previous H/P or p: No Changes General: Per HPI Objective Vitals Vital Signs Date Time Temp Pulse Resp B/P (MAP) Pulse Ox O2 Delivery O2 Flow Rate FiO2 06/30/24 09:00 98.3 76 18 103/70 (81) 96 98.3 06/30/24 08:00 Room Air* 0 21 Intake/Output Intake and Output 06/30/24 07:00 Intake Total 1570 ml Output Total 2600 ml Balance -1030 ml Intake Oral 300 ml IV Total 1270 ml Output Urine Total 2600 ml Exam nad, appears thin. RRR, s1s2+, nmrg ctab, no WRR abd ttp on deep palpation extrem w/o cyanosis, rash. no edema, or joint swelling neuro FND. Medications Current Medications Medications Dose Ordered Sig/Aston Route Start Time Stop Time Status Last Admin Dose Admin Sodium Chloride 1,000 ml @ 60 mls/hr [id number] IV 06/29/24 16:00 06/30/24 08:34 60 MLS/HR Acetaminophen/ Hydrocodone Bitart 1 tab Q4HP PRN PO 06/29/24 16:00 Docusate Sodium 100 mg BIDPRN PRN PO 06/29/24 16:00 Acetaminophen 650 mg Q6HP PRN PO 06/29/24 16:00 Morphine Sulfate 2 mg Q4HPRN PRN IV 06/29/24 16:00 06/30/24 04:49 2 MG Nitroglycerin 0.4 mg Q5MINP PRN SL 06/29/24 16:00 Morphine Sulfate 2 mg Q30M PRN IV 06/29/24 16:00 Levothyroxine Sodium 50 mcg DAILY PO 06/30/24 06:00 Diagnostic Test (Pha) 1 strip ACHS 06/29/24 17:00 06/30/24 11:28 1 STRIP Insulin Human Regular HS SC 06/29/24 22:00 Insulin Human Regular AC SC 06/29/24 17:00 06/30/24 11:32 3 UNITS Dextrose 50 ml UD PRN IV 06/29/24 16:45 Ondansetron HCl 4 mg Q6H IV 06/30/24 13:00 UNV Prochlorperazine Edisylate 5 mg Q4H IV 06/30/24 13:00 UNV Laboratory Results Laboratory Tests 06/30/24 04:49 Chemistry Test 06/29/24 15:09 06/30/24 04:49 Magnesium Level 1.9 mg/dL (1.6-2.6) Albumin 5.1 g/dL (3.2-4.8) H Calcium Level 9.8 mg/dL (8.7-10.4) Total Protein 7.2 g/dL (5.7-8.2) LFT Test 06/30/24 04:49 Alanine Aminotransferase (ALT) 25 U/L (7-40) Alkaline Phosphatase 103 U/L (46-116) Aspartate Amino Transferase (AST) 27 U/L (13-40) Total Bilirubin 0.9 mg/dL (0.2-1.0) Urinalysis Test 06/29/24 08:13 Urine Color Straw (Yellow) Urine Clarity Clear (Clear) Urine pH 7.5 (5.0-9.0) Urine Specific [place] 1.012 (1.001-1.035) Urine Protein Trace (Negative) H Urine Ketones 1+ (Negative) H Urine Blood Trace /uL (Negative) H Urine Nitrite Negative (Negative) Urine Bilirubin Negative (Negative) Urine Urobilinogen Normal mg/dL (Negative) Urine Leukocyte Esterase Negative /uL (Negative) Urine RBC 2 /hpf (0 - 4) Urine WBC <1 /hpf (0 - 5) Urine Squamous Epithelial Cells None seen /hpf (<5) Urine Bacteria None seen /hpf (None Seen) Urine Glucose 3+ mg/dL (Normal) H Labs and/or images reviewed: Labs reviewed by me, Image(s) reviewed by me Assessment/Plan Assessment/Plan update 06/30 - this is likely from her CA medication kisqali course. she does get these symptoms close to end of her 3rd week of each cycle. this episode is quite severe , resulting in po intolerance for last few days. don legerd off the kisqali as it is supposed to stop tomorrow weg 07/01 anyway. will start aston antiemetics. maintenance ivf. keep on tele given we have multiple QT prolonging antiemetics meds onboard. #unremitting nusea vomi / emesis syndrome #po intol #epigastric pain #current cancer treatment # chemotherapy induced emesis syndrome #acute gastroenteritis possible - she endorses kisqali (brreast CA tx drug) does cause her these symtpms nearing end of her 3rd week fo treatment. - ddx cancer therapy induced emesis syndrome, but cannot rule out gastroenteritis - CT abd/pelv nonCon is neg for acute process - keep on tele and start aston zofra, and compazine - IVF maintenance - on tele as antiemetics can prolong QT. close monitoring diet - npo DVT ppx - lovenox GI ppx - pepcid 20 bid injn med tele Plan discussed with: Patient My Orders Orders - KRISTOFER SHARMA MD Procedure Category Date Status Time Ondansetron Hcl PHA 06/30/24 Transmitted (Zofran) 13:00 Prochlorperazine Inj PHA 06/30/24 Transmitted (Compazine Inj) 13:00 Date of Service: Jun 30, 2024 Billing Provider: KRISTOFER SHARMA MD Common Visit Codes: [id number] INP/OBS CARE(HIGH) KRISTOFER SHARMA MD Jun 30, 2024 13:07
[2024-06-30] MEDS: ONDANSETRON HCL 4 MG/2 ML VIAL IV SCH (13:25)
[2024-06-30] MEDS: PROCHLORPERAZINE EDISYLATE 5 MG/ML 2ML VIAL IV SCH (14:02)
[2024-06-30] MEDS: POTASSIUM CHLORIDE 40 MEQ, LIDOCAINE 1% (LOCAL ANESTH.) 4 ML in SODIUM CHL 0.9% 250 ML IV ONE (16:41)
[2024-07-01] VITALS (8 sets, daily range): BP systolic 124–180; BP diastolic 72–109; PULSE 77–132; RESP 18–20; TEMP 97.7–99.4; O2SAT 94–98
[2024-07-01] MEDS: hydrALAZINE HCL 20 MG/ML VL IV ONE (04:43)
[2024-07-01] MEDS: TAMSULOSIN HYDROCHLORIDE 0.4 MG CAP PO ONE (10:31)
[2024-07-01 10:59] LABS: Basophils # (auto) 0 10 ^3/uL (0-0.2); Eosinophils # (auto) 0 10 ^3/uL (0-0.8); Lymphocytes # (auto) 0.6 10 ^3/uL (0.4-5.4); Mean Corpuscular Hgb Conc. 34.3 g/dL (32.0-36.0); Neutrophils # (auto) 7.6 10 ^3/uL (1.6-8.6); White Blood Cell 8.9 10^3/uL (4.4-10.8)
[2024-07-01 11:01] LABS: Basophils % (auto) 0.3 % (0.0-2.0); Hematocrit 39.9 % (36.0-46.0); Hemoglobin 13.7 g/dL (12.2-16.2); Lymphocytes % (auto) 6.5 % (10.0-50.0); Mean Corpuscular Hemoglobin 36.1 pg (28.0-32.0); Mean Corpuscular Volume 105.2 fL (80.0-100.0); Monocytes # (auto) 0.6 10 ^3/uL (0-1.3); Monocytes % (auto) 7.3 % (0.0-12.0); Neutrophils % (auto) 85.9 % (37.0-80.0); Platelet Count (auto) 415 10^3/uL (140-450); Red Blood Cells 3.79 10^6/uL (4.0-5.20); Red Cell Distribution Width 14.3 % (11.8-14.3)
[2024-07-01 11:15] LABS: Alanine Aminotransferase 27 U/L (7-40); Albumin 4.8 g/dL (3.2-4.8); Alkaline Phosphatase 101 U/L (46-116); Anion Gap 11 (5-15); Aspartate Aminotransferase 27 U/L (13-40); BUN/Creatinine Ratio 22.6 (10.0-20.0); Bilirubin, Total 1.3 mg/dL (0.2-1.0); Blood Urea Nitrogen 19 mg/dL (9-23); Calcium 9.8 mg/dL (8.7-10.4); Carbon Dioxide 24 mmol/L (20-31); Chloride 103 mmol/L (98-107); Glucose 133 mg/dL (74-106); Potassium 3.3 mmol/L (3.5-5.1); Sodium 138 mmol/L (136-145); Total Protein 7.1 g/dL (5.7-8.2)
[2024-07-01] MEDS: LACTATED RINGER'S 500 ML IV ONE (11:46)
[2024-07-01] MEDS ORDERED: POTASSIUM EFFERVESENT TAB 25 MEQ GT ONE (17:00)
--- NOTE | 2024-07-01 17:05 | DVHPN2 ---
Subjective update - 06/30 - this is likely from her CA medication kisqali course. she does get these symptoms close to end of her 3rd week of each cycle. this episode is quite severe , resulting in po intolerance for last few days. will holld off the kisqali as it is supposed to stop tomorrow weg 07/01 anyway. will start aston antiemetics. maintenance ivf. keep on tele given we have multiple QT prolonging antiemetics meds onboard. - - 07/01 - still having abd pain with nuasea. PO intolerant. wants espinosa out. tachcyardic, HTN sBP 160s-170s. Reviewed: H&P Changes from previous H/P or p: No Changes General: Per HPI Objective Vitals Vital Signs Date Time Temp Pulse Resp B/P (MAP) Pulse Ox O2 Delivery O2 Flow Rate FiO2 07/01/24 16:48 97.9 77 19 124/72 (89) 95 97.9 07/01/24 08:00 Room Air* 0 21 Intake/Output Intake and Output 07/01/24 07:00 Intake Total 0 ml Output Total 1800 ml Balance -1800 ml Intake Oral 0 ml Output Urine Total 1800 ml Exam nad, appears thin. RRR, s1s2+, nmrg ctab, no WRR abd ttp on deep palpation extrem w/o cyanosis, rash. no edema, or joint swelling neuro FND. Medications Current Medications Medications Dose Ordered Sig/Aston Route Start Time Stop Time Status Last Admin Dose Admin Sodium Chloride 1,000 ml @ 60 mls/hr [id number] IV 06/29/24 16:00 07/01/24 10:07 60 MLS/HR Acetaminophen/ Hydrocodone Bitart 1 tab Q4HP PRN PO 06/29/24 16:00 Docusate Sodium 100 mg BIDPRN PRN PO 06/29/24 16:00 Acetaminophen 650 mg Q6HP PRN PO 06/29/24 16:00 Morphine Sulfate 2 mg Q4HPRN PRN IV 06/29/24 16:00 07/01/24 10:32 2 MG Nitroglycerin 0.4 mg Q5MINP PRN SL 06/29/24 16:00 Morphine Sulfate 2 mg Q30M PRN IV 06/29/24 16:00 Levothyroxine Sodium 50 mcg DAILY PO 06/30/24 06:00 Diagnostic Test (Pha) 1 strip ACHS 06/29/24 17:00 07/01/24 16:02 1 STRIP Insulin Human Regular HS SC 06/29/24 22:00 Insulin Human Regular AC SC 06/29/24 17:00 07/01/24 11:29 2 UNITS Dextrose 50 ml UD PRN IV 06/29/24 16:45 Ondansetron HCl 4 mg Q6H IV 06/30/24 13:00 07/01/24 12:45 4 MG Prochlorperazine Edisylate 5 mg Q4H IV 06/30/24 13:00 07/01/24 12:45 5 MG Tamsulosin HCl 0.8 mg QPM PO 07/01/24 18:00 Metoprolol Succinate 25 mg DAILY PO 07/02/24 10:00 Laboratory Results Laboratory Tests 07/01/24 10:44 Chemistry Test 07/01/24 10:44 Albumin 4.8 g/dL (3.2-4.8) Calcium Level 9.8 mg/dL (8.7-10.4) Total Protein 7.1 g/dL (5.7-8.2) LFT Test 07/01/24 10:44 Alanine Aminotransferase (ALT) 27 U/L (7-40) Alkaline Phosphatase 101 U/L (46-116) Aspartate Amino Transferase (AST) 27 U/L (13-40) Total Bilirubin 1.3 mg/dL (0.2-1.0) H Urinalysis Test 06/29/24 08:13 Urine Color Straw (Yellow) Urine Clarity Clear (Clear) Urine pH 7.5 (5.0-9.0) Urine Specific [place] 1.012 (1.001-1.035) Urine Protein Trace (Negative) H Urine Ketones 1+ (Negative) H Urine Blood Trace /uL (Negative) H Urine Nitrite Negative (Negative) Urine Bilirubin Negative (Negative) Urine Urobilinogen Normal mg/dL (Negative) Urine Leukocyte Esterase Negative /uL (Negative) Urine RBC 2 /hpf (0 - 4) Urine WBC <1 /hpf (0 - 5) Urine Squamous Epithelial Cells None seen /hpf (<5) Urine Bacteria None seen /hpf (None Seen) Urine Glucose 3+ mg/dL (Normal) H Assessment/Plan Assessment/Plan update - 07/01 - still having abd pain with nuasea. PO intolerant. wants espinosa out. tachcyardic, HTN sBP 160s-170s. #unremitting nusea vomi / emesis syndrome #po intol #epigastric pain #current cancer treatment # chemotherapy induced emesis syndrome #acute gastroenteritis possible - she endorses kisqali (brreast CA tx drug) does cause her these symtpms nearing end of her 3rd week fo treatment. - ddx cancer therapy induced emesis syndrome, but cannot rule out gastroenteritis - CT abd/pelv nonCon is neg for acute process - keep on tele and start aston zofra, and compazine - IVF maintenance - on tele as antiemetics can prolong QT. close monitoring #urine retention - approx 1L out with espinosa insert. - continue espinosa - flomax high dose. trial espinosa removal plan for 07/02. if fails, will need urology outpt. #HTN crisis - sBP in 160s-170s - contolled with toprol XL. if remian high. can switch to coreg. #Afib RVR - started on day 2. - intially notified as tachycardia. did trial 500 LR with no change. - ddx: dehdyration vs ectopic foci - tsh in am pending - ekg - toprol XL 25 qd - keep tele - chadsvasc 3 - lovenox full dose 1mgkg q12h - card consult diet - npo DVT ppx - lovenox full dose GI ppx - pepcid 20 bid injn med tele Plan discussed with: Patient My Orders Orders - KRISTOFER SHARMA MD Procedure Category Date Status Time Tamsulosin PHA 07/01/24 In Process Hydrochloride (Flomax) 18:00 Npo Except Ice Chips ORDERS 07/01/24 Transmitted 09:41 Blood Culture GEMMA 07/01/24 In Process 10:40 Record Ekg MELIA 07/01/24 In Process 16:53 Metoprolol Xl PHA 07/02/24 In Process Succinate (Toprol Xl) 10:00 * Cardiology Consult CONS 07/01/24 Transmitted 16:53 Potassium Effervesent PHA 07/01/24 Logged Tab (Klor-Con/Ef) 17:00 Date of Service: Jul 01, 2024 Billing Provider: KRISTOFER SHARMA MD Common Visit Codes: [id number] INP/OBS CARE(HIGH) KRISTOFER SHARMA MD Jul 01, 2024 17:05
[2024-07-01] MEDS: TAMSULOSIN HYDROCHLORIDE 0.4 MG CAP PO SCH (17:34)
[2024-07-01] MEDS: POTASSIUM EFFERVESENT TAB 25 MEQ PO ONE (17:34)
[2024-07-01] MEDS: METOPROLOL SUCCINATE XL 50 MG TAB PO ONE (17:38)
[2024-07-01] MEDS: FAMOTIDINE (10MG/ML) 2ML VL IV SCH (20:43)
[2024-07-01] MEDS: ENOXAPARIN SOD 60 MG/0.6 ML SYRINGE SC SCH (20:44)
[2024-07-02] VITALS (8 sets, daily range): BP systolic 102–168; BP diastolic 60–105; PULSE 86–118; RESP 16–20; TEMP 97.6–99.1; O2SAT 93–98
[2024-07-02 08:01] LABS: Basophils # (auto) 0 10 ^3/uL (0-0.2); Basophils % (auto) 0.2 % (0.0-2.0); Eosinophils # (auto) 0 10 ^3/uL (0-0.8); Hematocrit 37.5 % (36.0-46.0); Hemoglobin 13.3 g/dL (12.2-16.2); Lymphocytes # (auto) 0.7 10 ^3/uL (0.4-5.4); Lymphocytes % (auto) 12.8 % (10.0-50.0); Mean Corpuscular Hemoglobin 37.1 pg (28.0-32.0); Mean Corpuscular Hgb Conc. 35.3 g/dL (32.0-36.0); Mean Corpuscular Volume 105.1 fL (80.0-100.0); Monocytes # (auto) 0.5 10 ^3/uL (0-1.3); Monocytes % (auto) 9.5 % (0.0-12.0); Neutrophils # (auto) 4.3 10 ^3/uL (1.6-8.6); Neutrophils % (auto) 77.5 % (37.0-80.0); Platelet Count (auto) 342 10^3/uL (140-450); Red Blood Cells 3.57 10^6/uL (4.0-5.20); Red Cell Distribution Width 14.3 % (11.8-14.3); White Blood Cell 5.5 10^3/uL (4.4-10.8)
[2024-07-02 08:10] LABS: Alanine Aminotransferase 28 U/L (7-40); Albumin 4.2 g/dL (3.2-4.8); Alkaline Phosphatase 91 U/L (46-116); Anion Gap 9 (5-15); Aspartate Aminotransferase 24 U/L (13-40); BUN/Creatinine Ratio 26.4 (10.0-20.0); Blood Urea Nitrogen 23 mg/dL (9-23); Calcium 9.4 mg/dL (8.7-10.4); Carbon Dioxide 25 mmol/L (20-31); Chloride 101 mmol/L (98-107); Glucose 130 mg/dL (74-106); Potassium 3.2 mmol/L (3.5-5.1); Sodium 135 mmol/L (136-145)
[2024-07-02 08:11] LABS: Bilirubin, Total 1.4 mg/dL (0.2-1.0); Total Protein 6.3 g/dL (5.7-8.2)
[2024-07-02] MEDS: METOPROLOL SUCCINATE XL 50 MG TAB PO SCH (09:21)
[2024-07-02] MEDS: HYDROcodone-ACET 5/325MG TAB PO PRN (09:22)
[2024-07-02] MEDS: hydrALAZINE HCL 20 MG/ML VL IV PRN (09:23)
[2024-07-02] MEDS: ONDANSETRON HCL 4 MG/2 ML VIAL IV PRN (11:27)
[2024-07-02 11:56] LABS: Magnesium 2.1 mg/dL (1.6-2.6)
[2024-07-02 12:00] LABS: Free T3 2.07 pg/mL (2.3-4.2)
[2024-07-02 12:01] LABS: Free T4 (Free Thyroxine) 1.01 ng/dL (0.89-1.76)
[2024-07-02 12:53] LABS: Folate (Folic Acid) 21.8 ng/mL (>5.38)
--- NOTE | 2024-07-02 13:42 | DVHINCON2 ---
Date Seen: Jul 02, 2024 Referring Physician MD Maranda Reason for Consultation Sinus tachycardia History of Present Illness This is a 69-year-old female patient who presents to the emergency room with chief complaint of generalized weakness, nausea, and vomiting. Cardiology has now been consulted for questionable atrial fibrillation. After reviewing all twelve lead electrocardiograms and cardiac care nurse, patient appears to go into sinus tachycardia with multiple PACs. Initial twelve electrocardiogram reveals normal sinus rhythm with diffuse ST depression and PACs with prolonged QTc at 510. Significant past medical history includes hypertension, thyroid disease, and breast cancer status post left lumpectomy. The patient reports a previous history of breast cancer approximately 20 years ago in which she underwent radiation and lumpectomy. The patient reports that her breast cancer was in remission until 2020 and now she is undergoing chemotherapy. Past Medical History Past medical history reviewed. No other significant than mentioned above. Past Surgical History Appendectomy Endometrial ablation Bilateral cataract removal Family History: Alzheimer's disease G8 MOTHER FH: breast cancer G8 MOTHER G8 SISTER GRANDMOTHER Family History Family history reviewed. Social History Patient has a 30 pack-year history, quit smoking approximately 41 years ago Patient denies any alcohol use Patient reports occasional marijuana use for pain Allergies: Coded Allergies: NO KNOWN ALLERGIES (Unverified , 09/08/23) Home Meds Reported Medications Ondansetron HCl (Ondansetron) 4 Mg Tab, 4 MG PO, TAB 06/29/24 Ribociclib Succinate (Kisqali) 200 Mg Tab, 200 MG PO DAILY, TAB 05/03/23 Letrozole (LETROZOLE) 2.5 Mg Tab, 1 TAB PO DAILY 04/27/22 Hydrochlorothiazide (Hydrochlorothiazide) 25 Mg Tab, #30 09/06/14 Albuterol Sulfate (Ventolin Hfa) Aer, #18 09/06/14 Discontinued Scripts Prochlorperazine Maleate (Compazine) 10 Mg Tb, 1 TAB PO Q6HR for 10 Days, #40 TAB 3 Refills Prov:MELANIE BECERRIL MD 09/08/23 Nystatin (Mouth-Throat) (Mycostatin (Mouth-Throat)) 500,000 Units/5 Ml Ss, 5 ML MT QID for 5 Days, #100 ML Prov:LETI DE LEÓN MD 05/07/23 Pantoprazole Sodium Sesquihydr (Protonix) 40 Mg Tab, 40 MG PO BID for 30 Days, #60 TAB Prov:LETI DE LEÓN MD 05/07/23 Home Meds Home medications reviewed. Current Medications Current Medications Medications (Trade) Dose Ordered Sig/Aston Route PRN Reason Start Time Stop Time Status Last Admin Tamsulosin HCl (Flomax) 0.8 mg QPM PO 07/01/24 18:00 07/01/24 17:34 Metoprolol Succinate (Toprol Xl) 25 mg DAILY PO 07/02/24 10:00 07/02/24 09:21 Enoxaparin Sodium (Lovenox) 50 mg Q12HR SC 07/01/24 22:00 07/02/24 09:22 Famotidine (Pepcid Injection) 20 mg DAILY@2200 IV 07/01/24 22:00 07/01/24 20:43 Hydralazine HCl (Apresoline Injection) 10 mg Q6HP PRN IV SBP>150 07/02/24 08:15 07/02/24 09:23 Ondansetron HCl (Zofran) 4 mg Q4H PRN IV nausea 07/02/24 09:00 07/02/24 11:27 Review of Systems Constitutional: Generalized weakness Ears, Nose, & Throat: No symptom reported Eyes: No symptom reported Neurological: No symptoms reported Pulmonary/Respiratory: No symptoms reported Cardiovascular: No symptom reported Gastrointestinal: Nausea, vomiting Genitourinary: No symptom reported Musculoskeletal: No symptom reported Skin: No symptom reported Psychiatric: No symptom reported Endocrine: No symptom reported Hematologic/Lymphatic: No symptom reported Vital Signs Vital Signs Date Time Temp Pulse Resp B/P (MAP) Pulse Ox O2 Delivery O2 Flow Rate FiO2 07/02/24 11:28 108 18 145/72 07/02/24 09:04 98.7 97 98.7 07/02/24 08:00 Room Air* 0 21 Physical Exam General Appearance: Cooperative. Thin Pulmonary/Respiratory: Clear, bilateral breaths sounds. Cardiovascular/Chest: Regular rate and rhythm. Peripheral Pulses: 2+ Radial (R). 2+ Radial (L). 2+ Pedal (R). 2+ Pedal (L) Abdominal Exam: Normal bowel sounds. Ankle Exam: Negative ankle edema Lower extremities: Negative lower extremity edema Neuro/Mental Status: A/OX4, coherent. Thoughts/Psych: Normal thought pattern. Appropriate mood and affect. Good judgment and insight. Appearance: No acute distress. Skin Exam: Normal inspection. Normal color. Warm and dry. Labs/Diagnostic Data Labs Test 07/02/24 11:25 07/02/24 07:30 06/29/24 08:13 Range/Units POC Glucose 193 H 70-106 mg/dl White Blood Count 5.5 # 4.4-10.8 10^3/uL Red Blood Count 3.57 L 4.0-5.20 10^6/uL Hemoglobin 13.3 12.2-16.2 g/dL Hematocrit 37.5 36.0-46.0 % Mean Corpuscular Volume 105.1 H 80.0-100.0 fL Mean Corpuscular Hemoglobin 37.1 H 28.0-32.0 pg Mean Corpuscular Hemoglobin Concent 35.3 32.0-36.0 g/dL Red Cell Distribution Width 14.3 11.8-14.3 % Platelet Count 342 140-450 10^3/uL Mean Platelet Volume 7.2 6.9-10.8 fL Neutrophils (%) (Auto) 77.5 37.0-80.0 % Lymphocytes (%) (Auto) 12.8 10.0-50.0 % Monocytes (%) (Auto) 9.5 0.0-12.0 % Eosinophils (%) (Auto) 0.0 0.0-7.0 % Basophils (%) (Auto) 0.2 0.0-2.0 % Neutrophils # (Auto) 4.3 1.6-8.6 10 ^3/uL Lymphocytes # (Auto) 0.7 0.4-5.4 10 ^3/uL Monocytes # (Auto) 0.5 0-1.3 10 ^3/uL Eosinophils # (Auto) 0 0-0.8 10 ^3/uL Basophils # (Auto) 0 0-0.2 10 ^3/uL Nucleated Red Blood Cells 0.0 % Sodium Level 135 L 136-145 mmol/L Potassium Level 3.2 L 3.5-5.1 mmol/L Chloride Level 101 98-107 mmol/L Carbon Dioxide Level 25 20-31 mmol/L Anion Gap 9 5-15 Blood Urea Nitrogen 23 9-23 mg/dL Creatinine 0.87 0.550-1.02 mg/dL Glomerular Filtration Rate Calc 72 >90 mL/min BUN/Creatinine Ratio 26.4 H 10.0-20.0 Serum Glucose 130 H 74-106 mg/dL Hemoglobin A1c 5.7 <5.7 % A1C Calcium Level 9.4 8.7-10.4 mg/dL Magnesium Level 2.1 1.6-2.6 mg/dL Total Bilirubin 1.4 H 0.2-1.0 mg/dL Aspartate Amino Transferase (AST) 24 13-40 U/L Alanine Aminotransferase (ALT) 28 7-40 U/L Alkaline Phosphatase 91 46-116 U/L Total Protein 6.3 5.7-8.2 g/dL Albumin 4.2 3.2-4.8 g/dL Triglycerides Level 163 H < 150 mg/dL Cholesterol Level 263 H < 200 mg/dL LDL Cholesterol 146 H < 100 mg/dL HDL Cholesterol 78 H 40-59 mg/dL Vitamin B12 Level 458 211-911 pg/mL Folic Acid 21.80 >5.38 ng/mL Thyroid Stimulating Hormone (TSH) 10.27 H 0.55-4.78 uIU/mL Free Thyroxine (T4) Calculated 1.01 0.89-1.76 ng/dL Free Triiodothyronine (T3) pg/mL 2.07 L 2.3-4.2 pg/mL Urine Color Straw Yellow Urine Clarity Clear Clear Urine pH 7.5 5.0-9.0 Urine Specific [place] 1.012 1.001-1.035 Urine Protein Trace H Negative Urine Ketones 1+ H Negative Urine Blood Trace H Negative /uL Urine Nitrite Negative Negative Urine Bilirubin Negative Negative Urine Urobilinogen Normal Negative mg/dL Urine Leukocyte Esterase Negative Negative /uL Urine RBC 2 0 - 4 /hpf Urine WBC <1 0 - 5 /hpf Urine Squamous Epithelial Cells None seen <5 /hpf Urine Bacteria None seen None Seen /hpf Urine Glucose 3+ H Normal mg/dL Microbiology Date/Time Source Procedure Growth Status 07/01/24 10:44 Blood Blood Culture - Preliminary NO GROWTH AFTER 24 HOURS OF INCUBATION. Resulted Assessment Sinus tachycardia Rule out structural heart disease Hypertensive urgency Dyslipidemia Breast cancer currently undergoing chemotherapy Hypokalemia Thyroid disease Plan/Recommendation We will continue with following plan/recommendations (Dr. Laughlin): We will obtain a transthoracic echocardiogram to evaluate cardiac function. Sinus tachycardia likely secondary to an underlying disease process. We will recommend to treat the underlying cause. Monitor and replete electrolytes as needed. We will also recommend to avoid QT prolonging medications. DVT/VTE prophylaxis. In the setting of an unremarkable echocardiogram, there is no further inpatient cardiac workup indicated at this time. Thank you for allowing us to care for this patient. Please call with any questions or concerns. Critical care time spent: 42 minutes This medical document was created using an electronic medical record system with voice recognition software and computerized dictation system. Although this document has been carefully reviewed, there might still be some phonetic and typographical errors. Occasional wrong-word or ``sound-alike substitutions may have occurred due to the inherent limitations of voice recognition software. These areas are purely typographical due to imperfections of the software p rograms and do not reflect any compromise in the patient's medical care. Please read the chart carefully and recognize, using context, where these substitutions have occurred. Plan discussed with: Patient Date of Service: Jul 02, 2024 Billing Provider: BUNNY LAUGHLIN MD Cardiology Common Codes: [id number] INP/OBS CARE (High) Cardiology Consultation Codes: [id number] CONSULT <45MIN SANKET ANNE Jul 02, 2024 13:42
--- NOTE | 2024-07-02 14:23 | DVHPN2 ---
Subjective update - 06/30 - this is likely from her CA medication kisqali course. she does get these symptoms close to end of her 3rd week of each cycle. this episode is quite severe , resulting in po intolerance for last few days. will holld off the kisqali as it is supposed to stop tomorrow weg 07/01 anyway. will start aston antiemetics. maintenance ivf. keep on tele given we have multiple QT prolonging antiemetics meds onboard. - - 07/01 - still having abd pain with nuasea. PO intolerant. wants espinosa out. tachcyardic, HTN sBP 160s-170s. - 07/02 - nausea improving. diet CLD is toelarting well. will take off compazinea nd make zofran prn. tachycardia is sinus tach, cardiology will eval. TSH shows subclx hypothyroid (synthroid needs uptitration outpatient). will get dimer as pt has CA and high risk PE (has some sob appearing from prior, but now no tachypnea, no oxygen requirement). . Reviewed: H&P Changes from previous H/P or p: No Changes General: Per HPI Objective Vitals Vital Signs Date Time Temp Pulse Resp B/P (MAP) Pulse Ox O2 Delivery O2 Flow Rate FiO2 07/02/24 11:28 108 18 145/72 07/02/24 09:04 98.7 97 98.7 07/02/24 08:00 Room Air* 0 21 Intake/Output Intake and Output 07/02/24 07:00 Intake Total 760 ml Output Total 1400 ml Balance -640 ml Intake Oral 760 ml Output Urine Total 1400 ml Exam nad, appears thin. RRR, s1s2+, nmrg ctab, no WRR abd non-ttp. soft. extrem w/o cyanosis, rash. no edema, or joint swelling neuro FND. Medications Current Medications Medications Dose Ordered Sig/Aston Route Start Time Stop Time Status Last Admin Dose Admin Sodium Chloride 1,000 ml @ 60 mls/hr [id number] IV 06/29/24 16:00 07/02/24 09:30 60 MLS/HR Acetaminophen/ Hydrocodone Bitart 1 tab Q4HP PRN PO 06/29/24 16:00 07/02/24 09:22 1 TAB Docusate Sodium 100 mg BIDPRN PRN PO 06/29/24 16:00 Acetaminophen 650 mg Q6HP PRN PO 06/29/24 16:00 Morphine Sulfate 2 mg Q4HPRN PRN IV 06/29/24 16:00 07/02/24 11:28 2 MG Nitroglycerin 0.4 mg Q5MINP PRN SL 06/29/24 16:00 Morphine Sulfate 2 mg Q30M PRN IV 06/29/24 16:00 Levothyroxine Sodium 50 mcg DAILY PO 06/30/24 06:00 Diagnostic Test (Pha) 1 strip ACHS 06/29/24 17:00 07/02/24 11:27 1 STRIP Insulin Human Regular HS SC 06/29/24 22:00 Insulin Human Regular AC SC 06/29/24 17:00 07/02/24 11:36 3 UNITS Dextrose 50 ml UD PRN IV 06/29/24 16:45 Tamsulosin HCl 0.8 mg QPM PO 07/01/24 18:00 07/01/24 17:34 0.8 MG Famotidine 20 mg DAILY@2200 IV 07/01/24 22:00 07/01/24 20:43 20 MG Hydralazine HCl 10 mg Q6HP PRN IV 07/02/24 08:15 07/02/24 09:23 10 MG Ondansetron HCl 4 mg Q4H PRN IV 07/02/24 09:00 07/02/24 11:27 4 MG Enoxaparin Sodium 40 mg Q24H SC 07/03/24 17:00 UNV Laboratory Results Laboratory Tests 07/02/24 07:30 Chemistry Test 07/02/24 07:30 Albumin 4.2 g/dL (3.2-4.8) Calcium Level 9.4 mg/dL (8.7-10.4) Magnesium Level 2.1 mg/dL (1.6-2.6) Total Protein 6.3 g/dL (5.7-8.2) Lipid panel Test 07/02/24 07:30 Cholesterol Level 263 mg/dL (< 200) H HDL Cholesterol 78 mg/dL (40-59) H Triglycerides Level 163 mg/dL (< 150) H LFT Test 07/02/24 07:30 Alanine Aminotransferase (ALT) 28 U/L (7-40) Alkaline Phosphatase 91 U/L (46-116) Aspartate Amino Transferase (AST) 24 U/L (13-40) Total Bilirubin 1.4 mg/dL (0.2-1.0) H HgA1c, TSH Test 07/02/24 07:30 Hemoglobin A1c 5.7 % A1C (<5.7) Thyroid Stimulating Hormone (TSH) 10.27 uIU/mL (0.55-4.78) H Urinalysis Test 06/29/24 08:13 Urine Color Straw (Yellow) Urine Clarity Clear (Clear) Urine pH 7.5 (5.0-9.0) Urine Specific [place] 1.012 (1.001-1.035) Urine Protein Trace (Negative) H Urine Ketones 1+ (Negative) H Urine Blood Trace /uL (Negative) H Urine Nitrite Negative (Negative) Urine Bilirubin Negative (Negative) Urine Urobilinogen Normal mg/dL (Negative) Urine Leukocyte Esterase Negative /uL (Negative) Urine RBC 2 /hpf (0 - 4) Urine WBC <1 /hpf (0 - 5) Urine Squamous Epithelial Cells None seen /hpf (<5) Urine Bacteria None seen /hpf (None Seen) Urine Glucose 3+ mg/dL (Normal) H Microbiology Microbiology Date/Time Source Procedure Growth Status 07/01/24 10:44 Blood Blood Culture - Preliminary NO GROWTH AFTER 24 HOURS OF INCUBATION. Resulted Labs and/or images reviewed: Labs reviewed by me, Image(s) reviewed by me Assessment/Plan Assessment/Plan update - 07/02 - nausea improving. diet CLD is toelarting well. will take off compazinea nd make zofran prn. tachycardia is sinus tach, cardiology will eval. TSH shows subclx hypothyroid (synthroid needs uptitration outpatient). will get dimer as pt has CA and high risk PE (has some sob appearing from prior, but now no tachypnea, no oxygen requirement). #unremitting nusea vomi / emesis syndrome #po intol #epigastric pain #current cancer treatment # chemotherapy induced emesis syndrome #acute gastroenteritis possible - she endorses kisqali (brreast CA tx drug) does cause her these symtpms nearing end of her 3rd week fo treatment. - ddx cancer therapy induced emesis syndrome, but cannot rule out gastroenteritis - CT abd/pelv nonCon is neg for acute process - keep on tele and start aston zofra, and compazine - IVF maintenance - on tele as antiemetics can prolong QT. close monitoring #urine retention - approx 1L out with espinosa insert. - continue espinosa - flomax high dose. trial espinosa removal plan for 07/02. if fails, will need urology outpt. #HTN crisis - sBP in 160s-170s - contolled with toprol XL. if remian high. can switch to coreg. #Afib RVR - started on day 2. - intially notified as tachycardia. did trial 500 LR with no change. - ddx: dehdyration vs ectopic foci - tsh in am pending - ekg - toprol XL 25 qd - keep tele - chadsvasc 3 - lovenox full dose 1mgkg q12h - card consult diet - npo DVT ppx - lovenox full dose GI ppx - pepcid 20 bid injn med tele Plan discussed with: Patient My Orders Orders - KRISTOFER SHARMA MD Procedure Category Date Status Time Record Ekg MELIA 07/01/24 In Process 16:53 * Cardiology Consult CONS 07/01/24 Transmitted 16:53 Famotidine Injection PHA 07/01/24 In Process (Pepcid Injection) 22:00 Hydralazine Injection PHA 07/02/24 In Process (Apresoline Inject 08:15 Ondansetron Hcl PHA 07/02/24 In Process (Zofran) 09:00 D-Dimer LAB 07/02/24 Logged 14:06 Enoxaparin Sodium PHA 07/03/24 Logged (Lovenox) 17:00 Consistent DIET 07/02/24 Transmitted Carb(Ccho)Diabetes Dinner Patients Own PHA 07/03/24 Transmitted Medication 10:00 Date of Service: Jul 02, 2024 Billing Provider: KRISTOFER SHARMA MD Common Visit Codes: [id number] INP/OBS CARE(HIGH) KRISTOFER SHARMA MD Jul 02, 2024 14:23
[2024-07-03] VITALS (8 sets, daily range): BP systolic 127–155; BP diastolic 83–93; PULSE 82–98; RESP 16–18; TEMP 94.9–98.3; O2SAT 83–100
[2024-07-03 05:34] LABS: Basophils # (auto) 0 10 ^3/uL (0-0.2); Basophils % (auto) 0.8 % (0.0-2.0); Eosinophils # (auto) 0 10 ^3/uL (0-0.8); Eosinophils % (auto) 0.5 % (0.0-7.0); Hematocrit 36.1 % (36.0-46.0); Hemoglobin 12.6 g/dL (12.2-16.2); Lymphocytes # (auto) 0.7 10 ^3/uL (0.4-5.4); Lymphocytes % (auto) 19.5 % (10.0-50.0); Mean Corpuscular Hemoglobin 36.7 pg (28.0-32.0); Monocytes # (auto) 0.5 10 ^3/uL (0-1.3); Monocytes % (auto) 12.6 % (0.0-12.0); Neutrophils # (auto) 2.5 10 ^3/uL (1.6-8.6); Neutrophils % (auto) 66.6 % (37.0-80.0); Nucleated Red Blood Cells % 0.1 %; Platelet Count (auto) 305 10^3/uL (140-450); Red Blood Cells 3.44 10^6/uL (4.0-5.20); Red Cell Distribution Width 13.8 % (11.8-14.3); White Blood Cell 3.8 10^3/uL (4.4-10.8)
[2024-07-03 06:06] LABS: Alanine Aminotransferase 21 U/L (7-40); Albumin 3.9 g/dL (3.2-4.8); Alkaline Phosphatase 76 U/L (46-116); Anion Gap 8 (5-15); Aspartate Aminotransferase 14 U/L (13-40); BUN/Creatinine Ratio 21.1 (10.0-20.0); Blood Urea Nitrogen 15 mg/dL (9-23); Calcium 8.6 mg/dL (8.7-10.4); Carbon Dioxide 26 mmol/L (20-31); Chloride 101 mmol/L (98-107); Glucose 114 mg/dL (74-106); Potassium 2.6 mmol/L (3.5-5.1); Sodium 135 mmol/L (136-145)
[2024-07-03 06:07] LABS: Bilirubin, Total 1.1 mg/dL (0.2-1.0); Total Protein 5.5 g/dL (5.7-8.2)
[2024-07-03] MEDS: IBUPROFEN 600 MG TAB PO ONE (09:19)
[2024-07-03] MEDS: HYDROcodone-ACET 10/325MG TAB PO ONE (09:20)
[2024-07-03] MEDS: ENOXAPARIN SOD 40 MG/0.4 ML SYRINGE SC SCH (09:22)
--- NOTE | 2024-07-03 09:49 | DVHSR ---
APPROVED REPORT EXAM: Two-dimensional and M-mode echocardiogram with Doppler and color Doppler. Blood Pressure: 168/105 mmHg INDICATION Evaluate Cardiac Function RISK FACTORS Height: 5', Weight: 103 DIMENSIONS LVDd4.4 (3.8-5.7cm)LA (2D)3.6 (1.9-4.0cm)Aortic Root2.9 (2.0-3.7cm) LVDs3.2 (2.5-4.0cm)LA (MM) (1.9-4.0cm)Aortic Cusp Exc1.5 (1.5-2.0cm) EF (%) 55.0 (55-70%)Rt. Atrium4.0 (1.9-4.0cm)Asc. Aorta cm IVSd0.9 (0.7-1.1cm)RV (D) (1.8-2.4cm) PWd0.7 (0.7-1.1cm) Mitral Valve MitralMitral Stenosis E wave0.80m/sMV Mean GR.mmHg A wave1.10m/sMV Peak GR.mmHg E/A ratio0.72D MVAcm2 Aortic Valve Aortic ValveAortic Stenosis V11.10m/Rom Mean GR.4mmHg V21.30m/Rom Peak GR.7mmHg LVOT Diameter2.0 (1.8-2.4cm)Doppler AVA2.66cm2 Pulmonic Valve V20.70m/s Tricuspid Valve TR Velocity2.50m/s [id number] Conclusion Normal left ventricular size and dimension. Normal left ventricular systolic function estimated ejec tion fraction 55%. There is a grade 1 diastolic dysfunction. Normal right ventricular size and dimension. Normal right ventricular systolic function. Slightly d ecreased right ventricular systolic pressure 30 mm of mercury Mildly dilated right atrium. Normal-sized left atrium, can not exclude minor shunt through the intra -atrial septum due to a PFO small ASD Normal aortic valve structure and function. Normal mitral valve structure and function. Normal tricuspid valve structure and function. The pulmonary valve is grossly normal. No pericardial effusion.
[2024-07-03] MEDS ORDERED: ENOXAPARIN SOD 60 MG/0.6 ML SYRINGE SC SCH (17:00)
[2024-07-03] MEDS: POTASSIUM EFFERVESENT TAB 25 MEQ PO ONE (18:12)
--- NOTE | 2024-07-03 21:09 | DVHPN2 ---
Subjective update - 06/30 - this is likely from her CA medication kisqali course. she does get these symptoms close to end of her 3rd week of each cycle. this episode is quite severe , resulting in po intolerance for last few days. will holld off the kisqali as it is supposed to stop tomorrow weg 07/01 anyway. will start aston antiemetics. maintenance ivf. keep on tele given we have multiple QT prolonging antiemetics meds onboard. - - 07/01 - still having abd pain with nuasea. PO intolerant. wants espinosa out. tachcyardic, HTN sBP 160s-170s. - 07/02 - nausea improving. diet CLD is toelarting well. will take off compazinea nd make zofran prn. tachycardia is sinus tach, cardiology will eval. TSH shows subclx hypothyroid (synthroid needs uptitration outpatient). will get dimer as pt has CA and high risk PE (has some sob appearing from prior, but now no tachypnea, no oxygen requirement). - 07/03 - much improved. buffy PO. espinosa inserted, pt asking for it to be removed. Reviewed: H&P Changes from previous H/P or p: No Changes General: Per HPI Objective Vitals Vital Signs Date Time Temp Pulse Resp B/P (MAP) Pulse Ox O2 Delivery O2 Flow Rate FiO2 07/03/24 17:00 97.8 98 18 155/88 (110) 83 97.8 07/03/24 08:00 Room Air* 0 21 Intake/Output Intake and Output 07/03/24 07:00 Intake Total 820 ml Output Total 1150 ml Balance -330 ml Intake Oral 820 ml Output Urine Total 1150 ml Exam nad, appears thin. RRR, s1s2+, nmrg ctab, no WRR abd non-ttp. soft. extrem w/o cyanosis, rash. no edema, or joint swelling neuro FND. Medications Current Medications Medications Dose Ordered Sig/Aston Route Start Time Stop Time Status Last Admin Dose Admin Sodium Chloride 1,000 ml @ 60 mls/hr [id number] IV 06/29/24 16:00 07/03/24 18:18 60 MLS/HR Acetaminophen/ Hydrocodone Bitart 1 tab Q4HP PRN PO 06/29/24 16:00 07/02/24 17:17 1 TAB Docusate Sodium 100 mg BIDPRN PRN PO 06/29/24 16:00 Acetaminophen 650 mg Q6HP PRN PO 06/29/24 16:00 Morphine Sulfate 2 mg Q4HPRN PRN IV 06/29/24 16:00 07/02/24 23:05 2 MG Nitroglycerin 0.4 mg Q5MINP PRN SL 06/29/24 16:00 Morphine Sulfate 2 mg Q30M PRN IV 06/29/24 16:00 Levothyroxine Sodium 50 mcg DAILY PO 06/30/24 06:00 Diagnostic Test (Pha) 1 strip ACHS 06/29/24 17:00 07/03/24 17:00 1 STRIP Insulin Human Regular HS SC 06/29/24 22:00 Insulin Human Regular AC SC 06/29/24 17:00 07/02/24 11:36 3 UNITS Dextrose 50 ml UD PRN IV 06/29/24 16:45 Tamsulosin HCl 0.8 mg QPM PO 07/01/24 18:00 07/03/24 18:12 0.8 MG Famotidine 20 mg DAILY@2200 IV 07/01/24 22:00 07/02/24 22:26 20 MG Hydralazine HCl 10 mg Q6HP PRN IV 07/02/24 08:15 07/02/24 09:23 10 MG Ondansetron HCl 4 mg Q4H PRN IV 07/02/24 09:00 07/02/24 11:27 4 MG Patient Own Medication 1 DAILY PO 07/03/24 10:00 Enoxaparin Sodium 40 mg DAILY SC 07/03/24 10:00 07/03/24 09:22 40 MG Laboratory Results Laboratory Tests 07/03/24 05:08 Chemistry Test 07/03/24 05:08 Albumin 3.9 g/dL (3.2-4.8) Calcium Level 8.6 mg/dL (8.7-10.4) L Total Protein 5.5 g/dL (5.7-8.2) L LFT Test 07/03/24 05:08 Alanine Aminotransferase (ALT) 21 U/L (7-40) Alkaline Phosphatase 76 U/L (46-116) Aspartate Amino Transferase (AST) 14 U/L (13-40) Total Bilirubin 1.1 mg/dL (0.2-1.0) H Urinalysis Test 06/29/24 08:13 Urine Color Straw (Yellow) Urine Clarity Clear (Clear) Urine pH 7.5 (5.0-9.0) Urine Specific [place] 1.012 (1.001-1.035) Urine Protein Trace (Negative) H Urine Ketones 1+ (Negative) H Urine Blood Trace /uL (Negative) H Urine Nitrite Negative (Negative) Urine Bilirubin Negative (Negative) Urine Urobilinogen Normal mg/dL (Negative) Urine Leukocyte Esterase Negative /uL (Negative) Urine RBC 2 /hpf (0 - 4) Urine WBC <1 /hpf (0 - 5) Urine Squamous Epithelial Cells None seen /hpf (<5) Urine Bacteria None seen /hpf (None Seen) Urine Glucose 3+ mg/dL (Normal) H Microbiology Microbiology Date/Time Source Procedure Growth Status 07/01/24 10:44 Blood Blood Culture - Preliminary NO GROWTH AFTER 48 HOURS OF INCUBATION. Resulted Labs and/or images reviewed: Labs reviewed by me, Image(s) reviewed by me Assessment/Plan Assessment/Plan update - 07/03 - much improved. buffy PO. espinosa inserted, pt asking for it to be removed. t). #unremitting nausea vomit / emesis syndrome #po intolerance #epigastric pain #current cancer treatment # chemotherapy induced emesis syndrome #acute gastroenteritis possible - she endorses kisqali (brreast CA tx drug) does cause her these symtpms nearing end of her 3rd week fo treatment. - ddx cancer therapy induced emesis syndrome, but cannot rule out gastroenteritis - CT abd/pelv nonCon is neg for acute process - prn zofran only now. advance tto FLD. - no IVF. - on tele as antiemetics can prolong QT. close monitoring #urine retention - approx 1L out with espinosa insert. - dc espinosa - flomax high dose. trial espinosa removal 07/03 #HTN crisis - sBP in 160s-170s - BP controlled now. was yashiraley 2/2 nausea/anxiety/pain. #sinus tachycardia - started on day 2. - intially notified as tachycardia. did trial 500 LR with no change. - ddx: dehdyration vs ectopic foci - tsh is high (apepars subclinical hypothyroid. - ekg , not afib but irregular. sinus on 07/03. - stop toprol XL 25 qd - keep tele - card consulted diet - FLD DVT ppx - lovenox full dose GI ppx - tolerating po med tele Plan discussed with: Patient My Orders Orders - KRISTOFER SHARMA MD Procedure Category Date Status Time Discontinue Espinosa MELIA 07/03/24 In Process Catheter 08:33 Pt Request For Service PT 07/03/24 Logged 08:35 Date of Service: Jul 03, 2024 Billing Provider: KRISTOFER SHARMA MD Common Visit Codes: [id number] INP/OBS CARE(HIGH) KRISTOFER SHARMA MD Jul 03, 2024 21:09
[2024-07-03] MEDS ORDERED: POTASSIUM CHLORIDE 40 MEQ, LIDOCAINE 1% (LOCAL ANESTH.) 4 ML in SODIUM CHL 0.9% 250 ML IV ONE (22:00)
[2024-07-03] MEDS ORDERED: POTASSIUM EFFERVESENT TAB 25 MEQ PO ONE (23:00)
[2024-07-03] MEDS ORDERED: POTASSIUM CHL 20 Meq TABLET PO ONE (23:00)
[2024-07-03] MEDS: POTASSIUM CHL 20 Meq TABLET PO ONE (23:11)
[2024-07-04 01:00] VITALS: BP 132/83; PULSE 88; RESP 18; TEMP 98; O2SAT 99
[2024-07-04 05:00] VITALS: BP 134/82; PULSE 82; RESP 19; TEMP 97.7; O2SAT 96
[2024-07-04 08:00] VITALS: PULSE 81; PULSE 97; RESP 16; O2SAT 95
[2024-07-04 08:51] VITALS: BP 134/85; PULSE 81; RESP 16; TEMP 98; O2SAT 95
[2024-07-04 09:33] LABS: Basophils # (auto) 0 10 ^3/uL (0-0.2); Eosinophils # (auto) 0 10 ^3/uL (0-0.8); Lymphocytes # (auto) 0.6 10 ^3/uL (0.4-5.4); Mean Corpuscular Hemoglobin 36.8 pg (28.0-32.0); Monocytes # (auto) 0.6 10 ^3/uL (0-1.3)
[2024-07-04 09:34] LABS: Basophils % (auto) 0.7 % (0.0-2.0); Eosinophils % (auto) 0.6 % (0.0-7.0); Hematocrit 37.6 % (36.0-46.0); Hemoglobin 13.3 g/dL (12.2-16.2); Lymphocytes % (auto) 13.3 % (10.0-50.0); Mean Corpuscular Hgb Conc. 35.3 g/dL (32.0-36.0); Mean Corpuscular Volume 104.4 fL (80.0-100.0); Monocytes % (auto) 13.3 % (0.0-12.0); Neutrophils # (auto) 3.3 10 ^3/uL (1.6-8.6); Neutrophils % (auto) 72.1 % (37.0-80.0); Platelet Count (auto) 332 10^3/uL (140-450); Red Cell Distribution Width 13.7 % (11.8-14.3); White Blood Cell 4.6 10^3/uL (4.4-10.8)
[2024-07-04 09:41] LABS: Alanine Aminotransferase 17 U/L (7-40); Albumin 3.8 g/dL (3.2-4.8); Alkaline Phosphatase 82 U/L (46-116); Anion Gap 9 (5-15); Aspartate Aminotransferase 13 U/L (13-40); BUN/Creatinine Ratio 15.1 (10.0-20.0); Bilirubin, Total 0.9 mg/dL (0.2-1.0); Blood Urea Nitrogen 11 mg/dL (9-23); Calcium 8.8 mg/dL (8.7-10.4); Carbon Dioxide 24 mmol/L (20-31); Chloride 105 mmol/L (98-107); Glucose 112 mg/dL (74-106); Potassium 3.4 mmol/L (3.5-5.1); Sodium 138 mmol/L (136-145); Total Protein 5.6 g/dL (5.7-8.2)
[2024-07-04] MEDS ORDERED: TAMS-35 PO (10:44)
--- NOTE | 2024-07-04 10:52 | DVHDS2 ---
Discharge Summary Date of Admission Jun 29, 2024 at 15:49 Date of Discharge: Jul 04, 2024 Labs/Diagnostic Data: Laboratory Results Test 07/04/24 08:56 07/03/24 21:38 07/02/24 14:55 07/02/24 07:30 White Blood Count 4.6 10^3/uL (4.4-10.8) Red Blood Count 3.60 10^6/uL (4.0-5.20) Hemoglobin 13.3 g/dL (12.2-16.2) Hematocrit 37.6 % (36.0-46.0) Mean Corpuscular Volume 104.4 fL (80.0-100.0) Mean Corpuscular Hemoglobin 36.8 pg (28.0-32.0) Mean Corpuscular Hemoglobin Concent 35.3 g/dL (32.0-36.0) Red Cell Distribution Width 13.7 % (11.8-14.3) Platelet Count 332 10^3/uL (140-450) Mean Platelet Volume 7.2 fL (6.9-10.8) Neutrophils (%) (Auto) 72.1 % (37.0-80.0) Lymphocytes (%) (Auto) 13.3 % (10.0-50.0) Monocytes (%) (Auto) 13.3 % (0.0-12.0) Eosinophils (%) (Auto) 0.6 % (0.0-7.0) Basophils (%) (Auto) 0.7 % (0.0-2.0) Neutrophils # (Auto) 3.3 10 ^3/uL (1.6-8.6) Lymphocytes # (Auto) 0.6 10 ^3/uL (0.4-5.4) Monocytes # (Auto) 0.6 10 ^3/uL (0-1.3) Eosinophils # (Auto) 0 10 ^3/uL (0-0.8) Basophils # (Auto) 0 10 ^3/uL (0-0.2) Nucleated Red Blood Cells 0.0 % Sodium Level 138 mmol/L (136-145) Potassium Level 3.4 mmol/L (3.5-5.1) Chloride Level 105 mmol/L (98-107) Carbon Dioxide Level 24 mmol/L (20-31) Anion Gap 9 (5-15) Blood Urea Nitrogen 11 mg/dL (9-23) Creatinine 0.73 mg/dL (0.550-1.02) Glomerular Filtration Rate Calc 89 mL/min (>90) BUN/Creatinine Ratio 15.1 (10.0-20.0) Serum Glucose 112 mg/dL (74-106) Calcium Level 8.8 mg/dL (8.7-10.4) Total Bilirubin 0.9 mg/dL (0.2-1.0) Aspartate Amino Transferase (AST) 13 U/L (13-40) Alanine Aminotransferase (ALT) 17 U/L (7-40) Alkaline Phosphatase 82 U/L (46-116) Total Protein 5.6 g/dL (5.7-8.2) Albumin 3.8 g/dL (3.2-4.8) POC Glucose 117 mg/dl (70-106) D-Dimer, Quantitative 0.39 mg/L FEU (0.0-0.49) Hemoglobin A1c 5.7 % A1C (<5.7) Magnesium Level 2.1 mg/dL (1.6-2.6) Triglycerides Level 163 mg/dL (< 150) Cholesterol Level 263 mg/dL (< 200) LDL Cholesterol 146 mg/dL (< 100) HDL Cholesterol 78 mg/dL (40-59) Vitamin B12 Level 458 pg/mL (211-911) Folic Acid 21.80 ng/mL (>5.38) Thyroid Stimulating Hormone (TSH) 10.27 uIU/mL (0.55-4.78) Free Thyroxine (T4) Calculated 1.01 ng/dL (0.89-1.76) Free Triiodothyronine (T3) pg/mL 2.07 pg/mL (2.3-4.2) Test 06/29/24 08:13 Urine Color Straw (Yellow) Urine Clarity Clear (Clear) Urine pH 7.5 (5.0-9.0) Urine Specific [place] 1.012 (1.001-1.035) Urine Protein Trace (Negative) Urine Ketones 1+ (Negative) Urine Blood Trace /uL (Negative) Urine Nitrite Negative (Negative) Urine Bilirubin Negative (Negative) Urine Urobilinogen Normal mg/dL (Negative) Urine Leukocyte Esterase Negative /uL (Negative) Urine RBC 2 /hpf (0 - 4) Urine WBC <1 /hpf (0 - 5) Urine Squamous Epithelial Cells None seen /hpf (<5) Urine Bacteria None seen /hpf (None Seen) Urine Glucose 3+ mg/dL (Normal) Other Laboratory Tests 07/04/24 08:56 Brief Hx & Hospital Course: 69-year-old female with past medical history of COPD, breast cancer, hypertension, Hypothyroidism, and GERD who comes in with intractable nausea and vomiting. Patient is currently being treated with PO medications for her breast cancer. She states she has been undergoing treatment for about 3 years and about once or twice a year she has this reaction. Patient has not been able to eat or drink anything for 3 days. States she has also been experiencing fevers, malaise, and body aches. CT abd/pelv nonCon is neg for acute process. Pt endorses kisqali (brreast [place] tx drug) does cause her these symtpms nearing end of her 3rd week fo treatment.ddx cancer therapy induced emesis syndrome, but cannot rule out viral. afebile, no leukocytopsis or neutrophilia. treated with scheduled zofran and compazine while on Tele. patient improved by day 3. Patient endorsed suprapubic pain in ED, bladder scan showed significant urinary retention and Hernandez inserted with approximately 1 L urine output. Hernandez was maintained during the stay and Flomax 0.8 mg was started. Near discharge Hernandez removed and PVR is still approximately 400 cc. Patient denied reinsertion of Hernandez and wants to be discharged home. Patient also had hypertensive crisis and sinus tachycardia during the stay which resolved after nausea vomiting resolved. TSH is elevated but thyroid levels normal, suggestive of subclinical hypothyroidism. Patient is stable on day 4, no nausea and vomiting, no abdominal pain, afebrile, vital signs stable. Stable for discharge with plan below. - diagnosis: Intractable nausea and vomiting, chemo therapy side effect, gastroenteritis possible, sinus tachycardia resolved, hypertension poorly controlled. Subclinical hypothyroid. Urinary retention. Hypertensive crisis. discharge plan: - Continue full liquid diet for 1 week, advance thereafter as tolerated - Zofran as needed for nausea - continue to use walker for ambulation. - patient denied urine Hernandez despite evidence of urinary retention, we will continue Flomax 0.8 mg daily, follow up with Urology outpatient. return to ER if develop unremitting bladder pains and difficulty urinating. - continue Hydrochlorothiazide. - Discharge clinic follow up - Follow up with PCP for discharge review - Continue other home meds not mentioned above. Visitation and planning required 35 minutes Condition at Discharge: Fair Final Diagnosis/Problems List Intractable nausea and vomiting, chemo therapy side effect, gastroenteritis possible, sinus tachycardia resolved, hypertension poorly controlled. Discharge Disposition: Home Discharge Instruct/Medications Diet: See Comment Diet comment: liquid diet 1 week then advance to regular as tolerated Activity: See Comment Activity comment: walker (patient already has) Follow Up/Referral: PCP, urology Medications: as below Discharge Statement: "Patient was advised to return to the ER or call 911 if any headaches, dizziness, shortness of breath, chest pain, abdominal pain, bleeding, fevers, or worsening of medical condition. Patient was counseled about treatment plan, medications, possible side effects, patientverbalized understanding. All questions were answered to the best of my ability. This discharge took greater then 30 minutes in planning, reviewing documentation, counseling the patient, and discussing with other team members." ASSESSMENT ASSESSMENT Assessment Intractable nausea and vomiting, chemo therapy side effect, gastroenteritis possible, sinus tachycardia resolved, hypertension poorly controlled. Date of Service: Jul 04, 2024 Billing Provider: KRISTOFER SHARMA MD Common Visit Codes: [id number] DISCH DAY >30min KRISTOFER SHARMA MD Jul 04, 2024 10:52
[2024-07-04 12:19] VITALS: BP 134/85; PULSE 81; RESP 16; TEMP 98; O2SAT 95
[2024-07-04 13:00] VITALS: BP 150/73; PULSE 82; RESP 17; TEMP 98; O2SAT 97
== END 2024-07-04 14:52 | disposition home or self-care (01) | DRG 392 ==
LOC: EDBD 00:36 → ER 00:36 → OVERFLOW 15:49 → CENTRAL 18:57 → TELE-CENTR 20:26
PROVIDERS: ADMIT Nurse Practitioner Family; ATTEND Student in an Organized Health Care Education/Training Program
DX: K52.9 Noninfective gastroenteritis and colitis, unspecified (principal); T45.1X5A Adverse effect of antineoplastic and immunosuppressive drugs, initial encounter; E86.0 Dehydration; E87.6 Hypokalemia; K21.9 Gastro-esophageal reflux disease without esophagitis; R00.0 Tachycardia, unspecified; I16.0 Hypertensive urgency; E78.5 Hyperlipidemia, unspecified; I10 Essential (primary) hypertension; J44.9 Chronic obstructive pulmonary disease, unspecified; R33.9 Retention of urine, unspecified; I48.91 Unspecified atrial fibrillation; E03.8 Other specified hypothyroidism; Z85.3 Personal history of malignant neoplasm of breast; Z82.0 Family history of epilepsy and other diseases of the nervous system; Z80.3 Family history of malignant neoplasm of breast; Z79.899 Other long term (current) drug therapy; Y92.89 Other specified places as the place of occurrence of the external cause
CPT/HCPCS: 36415; 74176; 80048; 80053; 80061; 81001; 82607; 82746; 82962; 83036; 83735; 84132; 84439; 84443; 84481; 85025; 85379; 87040; 93005; 93306; 96374; 96375; 97110; 97116; 97163; 97530; G0378; J1815; J2003; J2405; J3480; J3490